=== PATIENT | female | born 1940 | race Hispanic/Latino ===

== ENCOUNTER 2020-07-12 13:43 | Outpatient (CLI) | payer OTHER | END 2020-07-12 13:44 | disposition home or self-care (01) | LOC: CSHULT 13:43 | PROVIDERS: ATTEND Internal Medicine | DX: N18.31 Chronic kidney disease, stage 3a (principal); N28.9 Disorder of kidney and ureter, unspecified | CPT/HCPCS: 76770 ==

== ENCOUNTER 2021-06-29 12:07 | Inpatient (IN) | payer OTHER ==
[2021-06-29 12:51] LABS: Hemoglobin 12.5 g/dL (12.0-15.5); MDiff Complete? YES; Mean Corpuscular HGB CONC 30.6 g/dL (32.0-36.0); Mean Corpuscular Hemoglobin 31.9 pg (27.0-33.0); Mean Corpuscular Volume 104.3 fl (81.6-98.3); Mean Platelet Volume 9.8 fl (7.4-10.4); Platelet Count 136 10x3/uL (150-450); RBC Distribution Width 13.8 % (11.5-14.5); Red Blood Cell (RBC) Count 3.92 10x6/uL (3.90-5.03); White Blood Cell (WBC) Count 15.6 10x3/uL (3.5-10.5)
[2021-06-29 12:55] LABS: Acetaminophen Less than 6.0 mcg/mL (10.0-30.0); Alcohol Less than 10 mg/dL (Less than 10); Salicylate Less than 8.0 mg/dL (15.0-30.0)
[2021-06-29 12:57] LABS: ALT (SGPT) 62 U/L (8-55); Albumin 2.6 g/dL (3.4-4.8); Alkaline Phosphatase 29 U/L (40-110); Anion Gap 20 mmol/L (10-20); BUN (Urea Nitrogen) 20 mg/dL (9.8-20.1); Bilirubin, Total 0.2 mg/dL (0.2-1.2); Calc. Creatinine Clearance 0 mL/min (70-130); Calcium 7.2 mg/dL (7.8-10.44); Carbon Dioxide 12 mmol/L (23-31); Chloride 114 mmol/L (98-107); Globulin 2.4 g/dL (2.4-3.5); Glucose 293 mg/dL (83-110); Lipase 40 U/L (8-78); Potassium 3.4 mmol/L (3.5-5.1); Sodium 143 mmol/L (136-145)
[2021-06-29 12:58] LABS: AST (SGOT) 172 U/L (5-34)
[2021-06-29 13:17] LABS: CKMB 2.1 ng/mL (0-6.6)
[2021-06-29 13:18] LABS: Band 1 % (5-11); Lymphocytes 59 % (21-51); Monocytes 9 % (0-10); Neutrophil 29 % (42-75); Reactive Lymphocytes 2 % (0-10)
[2021-06-29 13:19] LABS: Macrocytosis SLIGHT = 6-15 cells (100X) (0-5/hpf)
[2021-06-29 13:20] LABS: Platelet Morphology Comment Appears Decreased
[2021-06-29 13:31] LABS: Critical Notified By: FY
[2021-06-29 13:32] LABS: Actual Bicarbonate (HCO3a) 11.2 mEq/L (22-28); O2 Tension (PaO2), arterial 142.5 mmHg (> 60.0)
[2021-06-29 13:33] LABS: Base Excess (BEa) -21.8 mEq/L (-2.0 to +3.0); Hemoglobin (Hb) 12.8 g/dL (12.0-16.0)
[2021-06-29 13:34] LABS: Calcium, Ionized (arterial) 1.05 mmol/L (1.12-1.30); Potassium - ABG Lab 2.9 mmol/L (3.70-5.30)
[2021-06-29 13:37] LABS: RapidComm Collect By EA
[2021-06-29] MEDS ORDERED: Sodium Bicarb 5 MEQ/10 ML Abboject 4.2% SYRINGE ONE (13:37)
[2021-06-29 14:34] LABS: Bilirubin Neg (Negative); Blood, Urine 50 (Negative); Clarity Clear (Clear); Glucose, Urine (Dipstick) 250 mg/dL (Negative); Ketone, Urine Negative (Negative); Leukocyte Negative (Negative); Nitrite Negative (Negative); Protein, Urine (Dipstick) 100 mg/dl (Neg-Trace); Urobilinogen Normal mg/dL (Less than 2); pH, Urine 6.5 (5.0-9.0)
[2021-06-29] MEDS ORDERED: Fentanyl 100 MCG/2 ML VIAL ONE ×2 (14:39→16:05)
[2021-06-29] MEDS ORDERED: Enoxaparin Sodium 80 MG/0.8 ML SYRINGE ONE (14:40)
[2021-06-29 14:44] LABS: Amphetamine Not Detected (NotDetected); Barbiturates Screen Not Detected (NotDetected); Benzodiazepine Screen Not Detected (NotDetected); Cocaine Metabolite Screen Not Detected (NotDetected); Methadone Not Detected (NotDetected); Methamphetamine Not Detected (NotDetected); Opiate Screen Not Detected (NotDetected); Oxycodone Screen Not Detected (NotDetected); Phencyclidine (PCP) Not Detected (NotDetected); THC/Cannabinoid Screen Not Detected (NotDetected); Tricyclic Screen Not Detected (NotDetected)
[2021-06-29 15:08] LABS: Critical Notified By: FY
[2021-06-29 15:09] LABS: Actual Bicarbonate (HCO3a) 17.9 mEq/L (22-28); Base Excess (BEa) -10.4 mEq/L (-2.0 to +3.0); Carboxyhemoglobin (COHb) 0.3 gm% (0.0-3.0); Hemoglobin (Hb) 16.1 g/dL (12.0-16.0); O2 Tension (PaO2), arterial 122.7 mmHg (> 60.0); pH, Arterial 7.19 (7.35-7.45)
[2021-06-29 15:10] LABS: SARS-CoV-2 NAA Rapid Test Not Detected (NotDetected)
[2021-06-29 15:11] LABS: Calcium, Ionized (arterial) 1.01 mmol/L (1.12-1.30); Puncture Site RRA
[2021-06-29 15:13] LABS: RapidComm Collect By EA
[2021-06-29 15:27] LABS: Lactic Acid 4.6 mmol/L (0.5-2.2)
[2021-06-29] MEDS ORDERED: Electrolyte Replacement Protocol 1 EACH IVPB ONE (15:37)
[2021-06-29] MEDS ORDERED: Ondansetron PF 4 MG/2 ML Vial IVP PRN (15:37)
[2021-06-29] MEDS ORDERED: Sodium Chloride 0.9% 1,000 ML IV SCH (15:45)
[2021-06-29 15:58] LABS: Bacteria/HPF None Seen HPF (None Seen); RBC/HPF 0-3 HPF (0-3); Squamous Epithelial 0-3 HPF (0-3); WBC/HPF None Seen HPF (0-3)
[2021-06-29] MEDS ORDERED: Potassium Chloride 20 MEQ in Premix Bag 1 BAG IVPB SCH (16:00)
[2021-06-29] MEDS ORDERED: Fentanyl 100 MCG/2 ML VIAL SLOW IVP PRN (16:10)
[2021-06-29] MEDS ORDERED: Acetaminophen 650 MG/20.3 ML UDCUP PO PRN (16:52)
[2021-06-29] MEDS ORDERED: Heparin 10,000 UNITS/ 10 ML VIAL SLOW IVP SCH (17:00)
[2021-06-29] MEDS ORDERED: fentaNYL Citrate/PF 2,000 MCG in Sodium Chloride 0.9% 60 ML IV PRN (17:15)
[2021-06-29] MEDS ORDERED: Propofol 1,000 MG/100 ML VIAL IV PRN (17:15)
[2021-06-29] MEDS ORDERED: ADMIXTURE FEE IV SCH (17:30)
[2021-06-29] MEDS ORDERED: STERILE WATER IV SCH (17:30)
[2021-06-29] MEDS ORDERED: SODIUM BICARBONATE IV SCH (17:30)
[2021-06-29] MEDS ORDERED: Piperacillin/Tazobactam 4.5 GM in Sodium Chloride 0.9% 100 ML IVPB SCH (18:00)
[2021-06-29] MEDS: Heparin 25,000 units/D5W 500 ML IVPB SCH (18:00)
[2021-06-29] MEDS ORDERED: Morphine 2 MG/ML VIAL SLOW IVP PRN (19:00)
[2021-06-29] MEDS ORDERED: Fentanyl BOLUS 250 ML IVPB PRN (19:00)
[2021-06-29] MEDS ORDERED: Propofol BOLUS 1,000 MG/100 ML VIAL IV PRN (19:00)
[2021-06-29] MEDS ORDERED: DISCONTINUE PREVIOUS NARCOTIC PAIN MEDICATIONS AND BENZODIAZEPINES FS SCH (19:00)
[2021-06-29] MEDS: fentaNYL Citrate-0.9 % NaCl/PF 100 ML IVPB SCH (19:23)
[2021-06-29 19:26] LABS: Platelet Count 169 10x3/uL (150-450)
[2021-06-29] MEDS: Vecuronium 10 MG VIAL IV PRN (19:27)
[2021-06-29 19:37] LABS: Lactic Acid 6.6 mmol/L (0.5-2.2)
[2021-06-29] MEDS ORDERED: Enoxaparin Sodium 80 MG/0.8 ML SYRINGE SC SCH (21:00)
[2021-06-29] MEDS ORDERED: Vecuronium Bromide 50 MG in Sodium Chloride 0.9% 250 ML 250 ML IV SCH (23:00)
[2021-06-29 23:21] LABS: PTT 125.8 sec (22.0-33.0)
[2021-06-29] MEDS: HumaLOG 300 UNITS/3 ML VIAL SC PRN (23:30)
[2021-06-29 23:44] LABS: ALT (SGPT) 108 U/L (8-55); AST (SGOT) 327 U/L (5-34); Albumin 3.7 g/dL (3.4-4.8); Alkaline Phosphatase 41 U/L (40-110); Anion Gap 21 mmol/L (10-20); BUN (Urea Nitrogen) 16 mg/dL (9.8-20.1); Bilirubin, Total 0.5 mg/dL (0.2-1.2); Calc. Creatinine Clearance 36 mL/min (70-130); Calcium 7.3 mg/dL (7.8-10.44); Carbon Dioxide 18 mmol/L (23-31); Chloride 105 mmol/L (98-107); Glucose 194 mg/dL (83-110); Potassium 3.2 mmol/L (3.5-5.1); Protein, Total 6.7 g/dL (5.8-8.1); Sodium 141 mmol/L (136-145)
[2021-06-30 00:01] LABS: #Monocytes 0.4 10x3/uL (0.0-1.1); #Neutrophils 10.4 10x3/uL (1.5-8.4); %Basophils 0.2 % (0.0-2.0); %Eosinophils 0.1 % (0.0-6.0); %Lymphocytes 13.9 % (18.0-47.0); %Neutrophils 81.8 % (40.0-75.0); Hemoglobin 14.3 g/dL (12.0-15.5); Mean Corpuscular HGB CONC 32.1 g/dL (32.0-36.0); Mean Corpuscular Hemoglobin 31.3 pg (27.0-33.0); Mean Corpuscular Volume 97.6 fl (81.6-98.3); Mean Platelet Volume 9.8 fl (7.4-10.4); Platelet Count 117 10x3/uL (150-450); RBC Distribution Width 13.9 % (11.5-14.5); Red Blood Cell (RBC) Count 4.57 10x6/uL (3.90-5.03); White Blood Cell (WBC) Count 12.8 10x3/uL (3.5-10.5)
[2021-06-30 00:24] LABS: Platelet Morphology Comment Appears Decreased; RBC Morphology Normal
[2021-06-30] MEDS ORDERED: Electrolyte Replacement Protocol FS SCH (00:45)
[2021-06-30 01:08] LABS: Magnesium 1.8 mg/dL (1.6-2.6)
[2021-06-30 01:52] LABS: Phosphorus 2.5 mg/dL (2.3-4.7)
[2021-06-30] MEDS ORDERED: Magnesium 2 GM/50 ML 2 GM in Premix Bag 1 BAG IVPB SCH ×2 (02:00→19:00)
[2021-06-30] MEDS ORDERED: Potassium Chloride 20 MEQ in Premix Bag 1 BAG IVPB SCH ×3 (02:00→19:00)
[2021-06-30] MEDS: Vecuronium 10 MG VIAL IV PRN ×3 (02:22→14:45)
[2021-06-30] MEDS: Norepinephrine 8 MG/0.9% NS 250 ML IVPB PRN ×2 (02:25→18:04)
[2021-06-30] MEDS: Piperacillin/Tazobactam 3.375 GM in Sodium Chloride 0.9% 100 ML IVPB SCH ×3 (02:36→17:19)
[2021-06-30] MEDS: Propofol 1,000 MG/100 ML VIAL IV PRN ×2 (02:47→10:27)
[2021-06-30 03:31] LABS: pH, Arterial 7.22 (7.35-7.45)
[2021-06-30 03:32] LABS: Actual Bicarbonate (HCO3a) 15.4 mEq/L (22-28); Base Excess (BEa) -11.5 mEq/L (-2.0 to +3.0); CO2 Tension 38.4 mmHg (35.0-45.0); Carboxyhemoglobin (COHb) 0.1 gm% (0.0-3.0); O2 Tension (PaO2), arterial 215.4 mmHg (> 60.0); Potassium - ABG Lab 4.7 mmol/L (3.70-5.30)
[2021-06-30 03:33] LABS: Calcium, Ionized (arterial) 0.97 mmol/L (1.12-1.30); Puncture Site RRA
[2021-06-30 03:51] LABS: Actual Bicarbonate (HCO3a) 17.1 mEq/L (22-28); CO2 Tension 34.4 mmHg (35.0-45.0); Carboxyhemoglobin (COHb) 0.1 gm% (0.0-3.0); Hemoglobin (Hb) 15.9 g/dL (12.0-16.0); O2 Tension (PaO2), arterial 305.7 mmHg (> 60.0); pH, Arterial 7.31 (7.35-7.45)
[2021-06-30 03:52] LABS: Calcium, Ionized (arterial) 0.95 mmol/L (1.12-1.30); Puncture Site RRA
[2021-06-30] MEDS ORDERED: Electrolyte Replacement Protocol FS PRN (05:00)
[2021-06-30 05:44] LABS: Magnesium 1.6 mg/dL (1.6-2.6)
[2021-06-30 05:46] LABS: ALT (SGPT) 84 U/L (8-55); AST (SGOT) 226 U/L (5-34); Albumin 3.2 g/dL (3.4-4.8); Alkaline Phosphatase 34 U/L (40-110); Anion Gap 18 mmol/L (10-20); BUN (Urea Nitrogen) 16 mg/dL (9.8-20.1); Bilirubin, Total 0.5 mg/dL (0.2-1.2); Calc. Creatinine Clearance 44 mL/min (70-130); Calcium 6.7 mg/dL (7.8-10.44); Carbon Dioxide 22 mmol/L (23-31); Chloride 104 mmol/L (98-107); Globulin 2.6 g/dL (2.4-3.5); Glucose 111 mg/dL (83-110); Protein, Total 5.8 g/dL (5.8-8.1); Sodium 141 mmol/L (136-145)
[2021-06-30 05:48] LABS: Potassium 2.9 mmol/L (3.5-5.1)
[2021-06-30 05:50] LABS: Band 6 % (5-11); Lymphocytes 26 % (21-51); MDiff Complete? YES; Mean Corpuscular HGB CONC 34.8 g/dL (32.0-36.0); Mean Corpuscular Hemoglobin 32.5 pg (27.0-33.0); Mean Corpuscular Volume 93.3 fl (81.6-98.3); Mean Platelet Volume 9.6 fl (7.4-10.4); Monocytes 2 % (0-10); Neutrophil 63 % (42-75); Platelet Count 161 10x3/uL (150-450); Platelet Morphology Comment Appears Adequate; RBC Distribution Width 13.7 % (11.5-14.5); RBC Morphology Normal; Reactive Lymphocytes 3 % (0-10); Red Blood Cell (RBC) Count 4.31 10x6/uL (3.90-5.03); White Blood Cell (WBC) Count 16.3 10x3/uL (3.5-10.5)
[2021-06-30] MEDS ORDERED: SODIUM BICARBONATE IV SCH ×2 (06:00→06:15)
[2021-06-30] MEDS ORDERED: ADMIXTURE FEE IV SCH (06:00)
[2021-06-30] MEDS ORDERED: STERILE WATER IV SCH ×2 (06:00→06:15)
[2021-06-30 06:07] LABS: PTT 96.4 sec (22.0-33.0)
[2021-06-30 06:32] LABS: Puncture Site RRA
[2021-06-30 06:32] LABS: Temperature 34.7 C
[2021-06-30 06:32] LABS: ALV-art Gradient 214.325 mmHg (0-20); Actual Bicarbonate (HCO3a) 24.1 mEq/L (22-28); Base Excess (BEa) 0.7 mEq/L (-2.0 to +3.0); CO2 Tension 35.1 mmHg (35.0-45.0); Calcium, Ionized (arterial) 0.88 mmol/L (1.12-1.30); Carboxyhemoglobin (COHb) 0.5 gm% (0.0-3.0); Hemoglobin (Hb) 14.1 g/dL (12.0-16.0); O2 Tension (PaO2), arterial 98.3 mmHg (> 60.0); Potassium - ABG Lab 2.8 mmol/L (3.70-5.30); Puncture Site Arterial Line; Temperature 34.6 C; pH, Arterial 7.46 (7.35-7.45)
[2021-06-30] MEDS ORDERED: Electrolyte Replacement Protocol 1 EACH IVPB SCH (09:00)
[2021-06-30 11:25] LABS: #Monocytes 0.8 10x3/uL (0.0-1.1); #Neutrophils 10.6 10x3/uL (1.5-8.4); %Basophils 0.1 % (0.0-2.0); %Eosinophils 0.1 % (0.0-6.0); %Lymphocytes 28.2 % (18.0-47.0); %Monocytes 5.1 % (0.0-10.0); %Neutrophils 66.1 % (40.0-75.0); Hemoglobin 13.1 g/dL (12.0-15.5); Mean Corpuscular HGB CONC 34.3 g/dL (32.0-36.0); Mean Corpuscular Hemoglobin 32.1 pg (27.0-33.0); Mean Corpuscular Volume 93.6 fl (81.6-98.3); Platelet Count 151 10x3/uL (150-450); RBC Distribution Width 13.8 % (11.5-14.5); Red Blood Cell (RBC) Count 4.08 10x6/uL (3.90-5.03)
[2021-06-30 12:31] LABS: PTT Greater than 139.0 sec (22.0-33.0)
[2021-06-30 13:08] LABS: Phosphorus 2.6 mg/dL (2.3-4.7)
[2021-06-30 13:14] LABS: ALT (SGPT) 73 U/L (8-55); AST (SGOT) 160 U/L (5-34); Albumin 3.1 g/dL (3.4-4.8); Alkaline Phosphatase 32 U/L (40-110); Anion Gap 20 mmol/L (10-20); BUN (Urea Nitrogen) 17 mg/dL (9.8-20.1); Bilirubin, Total 0.5 mg/dL (0.2-1.2); Calc. Creatinine Clearance 37 mL/min (70-130); Calcium 6.8 mg/dL (7.8-10.44); Carbon Dioxide 23 mmol/L (23-31); Chloride 104 mmol/L (98-107); Globulin 2.4 g/dL (2.4-3.5); Glucose 139 mg/dL (83-110); Magnesium 1.7 mg/dL (1.6-2.6); Potassium 3.3 mmol/L (3.5-5.1); Protein, Total 5.5 g/dL (5.8-8.1); Sodium 144 mmol/L (136-145)
[2021-06-30 14:17] LABS: CKMB 25.4 ng/mL (0-6.6)
[2021-06-30 15:03] LABS: PTT 100.5 sec (22.0-33.0)
[2021-06-30 15:33] LABS: Actual Bicarbonate (HCO3a) 23.1 mEq/L (22-28); Base Excess (BEa) -1.1 mEq/L (-2.0 to +3.0); CO2 Tension 36.8 mmHg (35.0-45.0); Calcium, Ionized (arterial) 0.89 mmol/L (1.12-1.30); Carboxyhemoglobin (COHb) 0.2 gm% (0.0-3.0); Hemoglobin (Hb) 13.4 g/dL (12.0-16.0); O2 Tension (PaO2), arterial 128.5 mmHg (> 60.0); Potassium - ABG Lab 2.9 mmol/L (3.70-5.30); Puncture Site Arterial Line; pH, Arterial 7.42 (7.35-7.45)
[2021-06-30 17:25] LABS: #Monocytes 0.7 10x3/uL (0.0-1.1); #Neutrophils 10.6 10x3/uL (1.5-8.4); %Basophils 0.2 % (0.0-2.0); %Eosinophils 0.1 % (0.0-6.0); %Lymphocytes 33.2 % (18.0-47.0); %Monocytes 4.2 % (0.0-10.0); %Neutrophils 61.9 % (40.0-75.0); Hemoglobin 12.8 g/dL (12.0-15.5); Mean Corpuscular HGB CONC 34.5 g/dL (32.0-36.0); Mean Corpuscular Hemoglobin 32.2 pg (27.0-33.0); Mean Corpuscular Volume 93.2 fl (81.6-98.3); Mean Platelet Volume 10.3 fl (7.4-10.4); Platelet Count 143 10x3/uL (150-450); RBC Distribution Width 13.9 % (11.5-14.5); Red Blood Cell (RBC) Count 3.98 10x6/uL (3.90-5.03); White Blood Cell (WBC) Count 17.2 10x3/uL (3.5-10.5)
[2021-06-30 17:41] LABS: Phosphorus 2.2 mg/dL (2.3-4.7)
[2021-06-30 17:43] LABS: ALT (SGPT) 64 U/L (8-55); AST (SGOT) 118 U/L (5-34); Albumin 2.9 g/dL (3.4-4.8); Alkaline Phosphatase 32 U/L (40-110); Anion Gap 19 mmol/L (10-20); BUN (Urea Nitrogen) 18 mg/dL (9.8-20.1); Bilirubin, Total 0.5 mg/dL (0.2-1.2); Calc. Creatinine Clearance 35 mL/min (70-130); Calcium 6.7 mg/dL (7.8-10.44); Carbon Dioxide 24 mmol/L (23-31); Chloride 104 mmol/L (98-107); Globulin 3.1 g/dL (2.4-3.5); Glucose 127 mg/dL (83-110); Magnesium 1.6 mg/dL (1.6-2.6); Sodium 144 mmol/L (136-145)
[2021-06-30 18:07] LABS: CKMB 25.2 ng/mL (0-6.6)
[2021-06-30] MEDS: fentaNYL Citrate-0.9 % NaCl/PF 100 ML IVPB SCH (18:10)
[2021-06-30] MEDS ORDERED: Famotidine/PF 20 mg/2ml Vial SLOW IVP SCH (21:00)
[2021-06-30 21:52] LABS: PTT Greater than 139.0 sec (22.0-33.0)
[2021-06-30 22:08] LABS: Anion Gap 21 mmol/L (10-20); BUN (Urea Nitrogen) 20 mg/dL (9.8-20.1); Calc. Creatinine Clearance 34 mL/min (70-130); Calcium 6.6 mg/dL (7.8-10.44); Carbon Dioxide 20 mmol/L (23-31); Chloride 105 mmol/L (98-107); Glucose 159 mg/dL (83-110); Potassium 3.1 mmol/L (3.5-5.1); Sodium 143 mmol/L (136-145)
[2021-06-30] MEDS ORDERED: Sodium Chloride 0.9% 1,000 ML IV SCH (22:15)
[2021-06-30] MEDS ORDERED: Hydrocortisone Sod Succ/PF 100 mg/2 ml Vial IVP SCH (22:15)
[2021-07-01] MEDS ORDERED: Potassium Chloride 20 MEQ in Premix Bag 1 BAG IVPB SCH
[2021-07-01 00:45] LABS: Anion Gap 17 mmol/L (10-20); BUN (Urea Nitrogen) 18 mg/dL (9.8-20.1); Calc. Creatinine Clearance 42 mL/min (70-130); Carbon Dioxide 20 mmol/L (23-31); Chloride 109 mmol/L (98-107); Glucose 132 mg/dL (83-110); Potassium 3.3 mmol/L (3.5-5.1); Sodium 143 mmol/L (136-145)
[2021-07-01] MEDS: Sodium Chloride 0.9% 1,000 ML IV SCH ×2 (01:14→14:48)
[2021-07-01] MEDS: Piperacillin/Tazobactam 3.375 GM in Sodium Chloride 0.9% 100 ML IVPB SCH ×3 (01:14→16:48)
[2021-07-01] MEDS: Propofol 1,000 MG/100 ML VIAL IV PRN ×4 (01:14→18:06)
[2021-07-01] MEDS: Hydrocortisone Sod Succ/PF 100 mg/2 ml Vial IVP SCH ×4 (04:11→21:00)
[2021-07-01 04:33] LABS: Actual Bicarbonate (HCO3a) 17.1 mEq/L (22-28); Base Excess (BEa) -8.4 mEq/L (-2.0 to +3.0); CO2 Tension 34.9 mmHg (35.0-45.0); Calcium, Ionized (arterial) 0.92 mmol/L (1.12-1.30); Carboxyhemoglobin (COHb) 0.3 gm% (0.0-3.0); Hemoglobin (Hb) 10.6 g/dL (12.0-16.0); O2 Tension (PaO2), arterial 92.9 mmHg (> 60.0); Potassium - ABG Lab 3.5 mmol/L (3.70-5.30); Puncture Site Arterial Line; Temperature 35.3 C; pH, Arterial 7.31 (7.35-7.45)
[2021-07-01 04:35] LABS: ALV-art Gradient 219.975 mmHg (0-20)
[2021-07-01 04:49] LABS: Band 9 % (5-11); Hemoglobin 10.4 g/dL (12.0-15.5); Lymphocytes 12 % (21-51); MDiff Complete? YES; Mean Corpuscular HGB CONC 34.3 g/dL (32.0-36.0); Mean Corpuscular Hemoglobin 32.5 pg (27.0-33.0); Mean Corpuscular Volume 94.7 fl (81.6-98.3); Mean Platelet Volume 10.6 fl (7.4-10.4); Monocytes 1 % (0-10); Myelocyte 1 % (0-0); Neutrophil 77 % (42-75); Platelet Count 143 10x3/uL (150-450); Platelet Morphology Comment Appears Adequate; RBC Distribution Width 14.5 % (11.5-14.5); RBC Morphology Normal; White Blood Cell (WBC) Count 16.7 10x3/uL (3.5-10.5)
[2021-07-01 04:56] LABS: ALT (SGPT) 49 U/L (8-55); AST (SGOT) 73 U/L (5-34); Albumin 2.5 g/dL (3.4-4.8); Alkaline Phosphatase 29 U/L (40-110); Anion Gap 17 mmol/L (10-20); BUN (Urea Nitrogen) 20 mg/dL (9.8-20.1); Bilirubin, Total 0.4 mg/dL (0.2-1.2); Calc. Creatinine Clearance 45 mL/min (70-130); Carbon Dioxide 19 mmol/L (23-31); Chloride 110 mmol/L (98-107); Globulin 2.2 g/dL (2.4-3.5); Glucose 161 mg/dL (83-110); Magnesium 2.2 mg/dL (1.6-2.6); Potassium 3.6 mmol/L (3.5-5.1); Protein, Total 4.7 g/dL (5.8-8.1); Sodium 142 mmol/L (136-145)
[2021-07-01 05:24] LABS: PTT 98.5 sec (22.0-33.0)
[2021-07-01] MEDS ORDERED: Calcium Gluconate 4.6 MEQ in Sodium Chloride 0.9% 100 ML IVPB SCH (07:30)
[2021-07-01] MEDS ORDERED: Calcium Gluconate 100 MG/ML 10 ML IVPB SCH (07:30)
[2021-07-01] MEDS: Heparin 25,000 units/D5W 500 ML IVPB SCH (08:40)
[2021-07-01] MEDS: Norepinephrine 8 MG/0.9% NS 250 ML IVPB PRN (08:40)
[2021-07-01 14:45] LABS: PTT Greater than 250.0 sec (22.9-36.1)
[2021-07-01 15:02] LABS: Lactic Acid 1.5 mmol/L (0.5-2.2)
[2021-07-01 15:37] LABS: PTT Greater than 139.0 sec (22.0-33.0)
[2021-07-01] MEDS: HumaLOG 300 UNITS/3 ML VIAL SC PRN (15:53)
[2021-07-01] MEDS: Dexmedetomidine In 0.9 % NaCl 100 ML IVPB SCH (16:30)
[2021-07-01 16:37] LABS: Hemoglobin 7.6 g/dL (12.0-15.5); Platelet Count 128 10x3/uL (150-450)
[2021-07-01 16:51] LABS: ALT (SGPT) 40 U/L (8-55); AST (SGOT) 56 U/L (5-34); Albumin 2.4 g/dL (3.4-4.8); Alkaline Phosphatase 30 U/L (40-110); Anion Gap 16 mmol/L (10-20); Bilirubin, Total 0.3 mg/dL (0.2-1.2); Calc. Creatinine Clearance 38 mL/min (70-130); Calcium 6.3 mg/dL (7.8-10.44); Carbon Dioxide 20 mmol/L (23-31); Chloride 111 mmol/L (98-107); Globulin 2.2 g/dL (2.4-3.5); Glucose 151 mg/dL (83-110); Protein, Total 4.6 g/dL (5.8-8.1); Sodium 143 mmol/L (136-145)
[2021-07-01 17:01] LABS: BUN (Urea Nitrogen) 20 mg/dL (9.8-20.1)
[2021-07-01] MEDS: Enoxaparin Sodium 60 MG/0.6 ML SYRINGE SC SCH (21:00)
[2021-07-01] MEDS: Famotidine/PF 20 mg/2ml Vial SLOW IVP SCH (21:00)
[2021-07-01] MEDS: fentaNYL Citrate-0.9 % NaCl/PF 100 ML IVPB SCH (22:51)
[2021-07-02] MEDS: Dexmedetomidine In 0.9 % NaCl 100 ML IVPB SCH ×3 (01:36→21:52)
[2021-07-02] MEDS: Piperacillin/Tazobactam 3.375 GM in Sodium Chloride 0.9% 100 ML IVPB SCH ×3 (01:46→18:22)
[2021-07-02] MEDS: Sodium Chloride 0.9% 1,000 ML IV SCH ×2 (02:58→05:34)
[2021-07-02] MEDS: Hydrocortisone Sod Succ/PF 100 mg/2 ml Vial IVP SCH ×3 (03:43→18:22)
[2021-07-02 04:29] LABS: ALT (SGPT) 30 U/L (8-55); AST (SGOT) 40 U/L (5-34); Albumin 2.3 g/dL (3.4-4.8); Alkaline Phosphatase 30 U/L (40-110); Anion Gap 15 mmol/L (10-20); BUN (Urea Nitrogen) 21 mg/dL (9.8-20.1); Bilirubin, Total 0.2 mg/dL (0.2-1.2); Calc. Creatinine Clearance 42 mL/min (70-130); Carbon Dioxide 19 mmol/L (23-31); Chloride 113 mmol/L (98-107); Globulin 1.9 g/dL (2.4-3.5); Glucose 137 mg/dL (83-110); Magnesium 2.2 mg/dL (1.6-2.6); Potassium 3.6 mmol/L (3.5-5.1); Protein, Total 4.2 g/dL (5.8-8.1); Sodium 143 mmol/L (136-145)
[2021-07-02 04:34] LABS: Phosphorus 2.4 mg/dL (2.3-4.7)
[2021-07-02 04:42] LABS: Band 1 % (5-11); Hemoglobin 7.2 g/dL (12.0-15.5); Lymphocytes 11 % (21-51); MDiff Complete? YES; Mean Corpuscular HGB CONC 33.2 g/dL (32.0-36.0); Mean Corpuscular Hemoglobin 32.1 pg (27.0-33.0); Mean Corpuscular Volume 96.9 fl (81.6-98.3); Mean Platelet Volume 10.5 fl (7.4-10.4); Monocytes 5 % (0-10); Neutrophil 83 % (42-75); Platelet Count 125 10x3/uL (150-450); Platelet Morphology Comment Appears Adequate; RBC Distribution Width 14.8 % (11.5-14.5); RBC Morphology Normal; Red Blood Cell (RBC) Count 2.24 10x6/uL (3.90-5.03); White Blood Cell (WBC) Count 14.1 10x3/uL (3.5-10.5)
[2021-07-02] MEDS ORDERED: Sodium Bicarbonate 2.5 MEQ/5 ML VIAL ONE (08:25)
[2021-07-02] MEDS: Lorazepam 2 MG/ML VIAL SLOW IVP PRN ×4 (09:54→23:29)
[2021-07-02] MEDS: Enoxaparin Sodium 60 MG/0.6 ML SYRINGE SC SCH (10:23)
[2021-07-02] MEDS: Norepinephrine 8 MG/0.9% NS 250 ML IVPB PRN (10:26)
[2021-07-02 14:32] LABS: Hemoglobin 6.9 g/dL (12.0-15.5)
[2021-07-02] MEDS: Famotidine/PF 20 mg/2ml Vial SLOW IVP SCH (21:52)
[2021-07-03] MEDS: Lorazepam 2 MG/ML VIAL SLOW IVP PRN ×2 (01:49→06:06)
[2021-07-03 03:59] LABS: Actual Bicarbonate (HCO3a) 18.6 mEq/L (22-28); Base Excess (BEa) -3.9 mEq/L (-2.0 to +3.0); CO2 Tension 24.2 mmHg (35.0-45.0); Calcium, Ionized (arterial) 0.89 mmol/L (1.12-1.30); Carboxyhemoglobin (COHb) 0.7 gm% (0.0-3.0); Hemoglobin (Hb) 7.6 g/dL (12.0-16.0); O2 Tension (PaO2), arterial 79.1 mmHg (> 60.0); Potassium - ABG Lab 3.3 mmol/L (3.70-5.30); Puncture Site Arterial Line
[2021-07-03] MEDS: Piperacillin/Tazobactam 3.375 GM in Sodium Chloride 0.9% 100 ML IVPB SCH ×3 (04:24→18:12)
[2021-07-03] MEDS: Hydrocortisone Sod Succ/PF 100 mg/2 ml Vial IVP SCH ×3 (04:24→18:13)
[2021-07-03 05:17] LABS: ALT (SGPT) 22 U/L (8-55); AST (SGOT) 34 U/L (5-34); Albumin 2.2 g/dL (3.4-4.8); Alkaline Phosphatase 33 U/L (40-110); Anion Gap 10 mmol/L (10-20); BUN (Urea Nitrogen) 22 mg/dL (9.8-20.1); Bilirubin, Total 0.6 mg/dL (0.2-1.2); Calc. Creatinine Clearance 53 mL/min (70-130); Calcium 6.1 mg/dL (7.8-10.44); Carbon Dioxide 20 mmol/L (23-31); Chloride 118 mmol/L (98-107); Globulin 1.9 g/dL (2.4-3.5); Glucose 124 mg/dL (83-110); Potassium 3.4 mmol/L (3.5-5.1); Protein, Total 4.1 g/dL (5.8-8.1); Sodium 145 mmol/L (136-145)
[2021-07-03 05:20] LABS: Hemoglobin 7.7 g/dL (12.0-15.5); Mean Corpuscular HGB CONC 34.4 g/dL (32.0-36.0); Mean Corpuscular Volume 92.9 fl (81.6-98.3); Mean Platelet Volume 10.2 fl (7.4-10.4); Platelet Count 102 10x3/uL (150-450); RBC Distribution Width 16.7 % (11.5-14.5); Red Blood Cell (RBC) Count 2.41 10x6/uL (3.90-5.03); White Blood Cell (WBC) Count 10.7 10x3/uL (3.5-10.5)
[2021-07-03] MEDS: Dexmedetomidine In 0.9 % NaCl 100 ML IVPB SCH ×3 (05:50→21:29)
[2021-07-03 06:03] LABS: MDiff Complete? YES
[2021-07-03 06:07] LABS: Lymphocytes 25 % (21-51); Monocytes 2 % (0-10); Neutrophil 73 % (42-75)
[2021-07-03 06:08] LABS: Hypochromia SLIGHT = 6-15 cells (100X) (0-5/hpf)
[2021-07-03] MEDS: Potassium Chloride 20 MEQ in Premix Bag 1 BAG IVPB SCH ×2 (06:08→08:32)
[2021-07-03 06:09] LABS: Polychromasia SLIGHT = 2-3 cells (100X) (0-2/hpf)
[2021-07-03 06:10] LABS: Platelet Morphology Comment Appears Decreased
[2021-07-03] MEDS: Sodium Chloride 0.9% 1,000 ML IV SCH ×2 (06:24→21:29)
[2021-07-03 07:22] LABS: ALV-art Gradient 132.425 mmHg (0-20); Actual Bicarbonate (HCO3a) 24.2 mEq/L (22-28); CO2 Tension 37.3 mmHg (35.0-45.0); Calcium, Ionized (arterial) 0.88 mmol/L (1.12-1.30); Carboxyhemoglobin (COHb) 0.2 gm% (0.0-3.0); Hemoglobin (Hb) 7.7 g/dL (12.0-16.0); O2 Tension (PaO2), arterial 70.5 mmHg (> 60.0); Potassium - ABG Lab 3.4 mmol/L (3.70-5.30); Puncture Site Arterial Line; pH, Arterial 7.43 (7.35-7.45)
[2021-07-03] MEDS ORDERED: Sodium Chloride 0.45% 1,000 ML IV SCH (09:30)
[2021-07-03] MEDS ORDERED: Albumin 25% 25 GM/100 ML BOT IVPB SCH (09:30)
[2021-07-03 13:28] LABS: Hemoglobin 7.3 g/dL (12.0-15.5)
[2021-07-03 13:48] LABS: Potassium 3.6 mmol/L (3.5-5.1)
[2021-07-03] MEDS: Midazolam HCl 2 mg/2 ml Vial SLOW IVP PRN (16:04)
[2021-07-03 17:22] LABS: Hemoglobin 7.1 g/dL (12.0-15.5); Platelet Count 100 10x3/uL (150-450)
[2021-07-03] MEDS: Morphine 4 MG/ML VIAL SLOW IVP PRN (21:03)
[2021-07-03] MEDS: Famotidine/PF 20 mg/2ml Vial SLOW IVP SCH (21:29)
[2021-07-03] MEDS: Enoxaparin Sodium 40 MG/0.4 ML SYRINGE SC SCH (21:29)
[2021-07-04] MEDS: Morphine 4 MG/ML VIAL SLOW IVP PRN ×5 (00:21→17:15)
[2021-07-04] MEDS: Midazolam HCl 2 mg/2 ml Vial SLOW IVP PRN ×4 (01:20→16:34)
[2021-07-04] MEDS: Piperacillin/Tazobactam 3.375 GM in Sodium Chloride 0.9% 100 ML IVPB SCH ×3 (02:23→17:04)
[2021-07-04 03:15] LABS: Hemoglobin 7.9 g/dL (12.0-15.5); Mean Corpuscular HGB CONC 34.5 g/dL (32.0-36.0); Mean Corpuscular Hemoglobin 32.1 pg (27.0-33.0); Mean Corpuscular Volume 93.1 fl (81.6-98.3); Mean Platelet Volume 10.3 fl (7.4-10.4); Platelet Count 87 10x3/uL (150-450); RBC Distribution Width 15.9 % (11.5-14.5); Red Blood Cell (RBC) Count 2.46 10x6/uL (3.90-5.03)
[2021-07-04 03:23] LABS: ALT (SGPT) 18 U/L (8-55); AST (SGOT) 26 U/L (5-34); Albumin 2.7 g/dL (3.4-4.8); Alkaline Phosphatase 36 U/L (40-110); Anion Gap 12 mmol/L (10-20); BUN (Urea Nitrogen) 16 mg/dL (9.8-20.1); Bilirubin, Total 0.9 mg/dL (0.2-1.2); Calc. Creatinine Clearance 68 mL/min (70-130); Calcium 6.6 mg/dL (7.8-10.44); Carbon Dioxide 18 mmol/L (23-31); Chloride 117 mmol/L (98-107); Glucose 138 mg/dL (83-110); Protein, Total 4.7 g/dL (5.8-8.1); Sodium 144 mmol/L (136-145)
[2021-07-04 03:37] LABS: MDiff Complete? YES
[2021-07-04 03:41] LABS: Band 4 % (5-11); Lymphocytes 14 % (21-51); Monocytes 4 % (0-10); Neutrophil 78 % (42-75); Nucleated RBC 1 % (0)
[2021-07-04 03:43] LABS: Hypochromia MODERATE=16-30 cells (100X) (0-5/hpf)
[2021-07-04 03:44] LABS: Platelet Morphology Comment Appears Decreased; Polychromasia SLIGHT = 2-3 cells (100X) (0-2/hpf)
[2021-07-04 04:40] LABS: Actual Bicarbonate (HCO3a) 16.6 mEq/L (22-28); Base Excess (BEa) -7.6 mEq/L (-2.0 to +3.0); Calcium, Ionized (arterial) 0.98 mmol/L (1.12-1.30); Carboxyhemoglobin (COHb) 0.1 gm% (0.0-3.0); Hemoglobin (Hb) 9.2 g/dL (12.0-16.0); O2 Tension (PaO2), arterial 85.9 mmHg (> 60.0); Potassium - ABG Lab 2.9 mmol/L (3.70-5.30); Puncture Site Arterial Line; pH, Arterial 7.38 (7.35-7.45)
[2021-07-04] MEDS: Dexmedetomidine In 0.9 % NaCl 100 ML IVPB SCH ×3 (05:42→17:05)
[2021-07-04] MEDS: Hydrocortisone Sod Succ/PF 100 mg/2 ml Vial IVP SCH ×2 (05:42→16:33)
[2021-07-04] MEDS ORDERED: Potassium Chloride 20 MEQ in Premix Bag 1 BAG IVPB SCH (06:00)
[2021-07-04] MEDS ORDERED: Potassium Bicarbonate/Cit Ac 20 MEQ TAB PER TUBE SCH (06:30)
[2021-07-04] MEDS: Enoxaparin Sodium 40 MG/0.4 ML SYRINGE SC SCH ×2 (09:08→23:25)
[2021-07-04] MEDS: Famotidine/PF 20 mg/2ml Vial SLOW IVP SCH ×2 (09:08→20:51)
[2021-07-04] MEDS: Sodium Chloride 0.9% 1,000 ML IV SCH (09:13)
[2021-07-04] MEDS: hydrALAZINE 20 MG/ML VIAL SLOW IVP PRN (10:41)
[2021-07-04 15:24] LABS: Potassium 3.2 mmol/L (3.5-5.1)
[2021-07-04 15:29] LABS: PTT 23.1 sec (22.0-33.0); Prothrombin Time 11.1 sec (9.5-12.1)
[2021-07-04] MEDS ORDERED: Potassium Bicarbonate/Cit Ac 20 MEQ TAB PO SCH (16:00)
[2021-07-04] MEDS ORDERED: Potassium Chloride 20 MEQ TAB PO SCH (16:00)
[2021-07-04 16:01] LABS: D-Dimer Test 10.56 mg/L FEU (0.19-0.50)
[2021-07-04] MEDS: levETIRAcetam in NS 1,000 MG in Premix Bag 1 BAG IVPB SCH (20:50)
[2021-07-04 23:43] LABS: Potassium 3.8 mmol/L (3.5-5.1)
[2021-07-05] MEDS: Morphine 4 MG/ML VIAL SLOW IVP PRN (01:43)
[2021-07-05] MEDS: Piperacillin/Tazobactam 3.375 GM in Sodium Chloride 0.9% 100 ML IVPB SCH ×3 (02:47→17:41)
[2021-07-05 03:28] LABS: Hemoglobin 7.2 g/dL (12.0-15.5); Mean Corpuscular HGB CONC 33.6 g/dL (32.0-36.0); Mean Corpuscular Volume 95.1 fl (81.6-98.3); Mean Platelet Volume 10.8 fl (7.4-10.4); Platelet Count 103 10x3/uL (150-450); RBC Distribution Width 15.8 % (11.5-14.5); Red Blood Cell (RBC) Count 2.25 10x6/uL (3.90-5.03); White Blood Cell (WBC) Count 5.3 10x3/uL (3.5-10.5)
[2021-07-05 03:37] LABS: ALT (SGPT) 14 U/L (8-55); AST (SGOT) 24 U/L (5-34); Albumin 2.4 g/dL (3.4-4.8); Alkaline Phosphatase 32 U/L (40-110); Anion Gap 13 mmol/L (10-20); BUN (Urea Nitrogen) 23 mg/dL (9.8-20.1); Bilirubin, Total 0.5 mg/dL (0.2-1.2); Calc. Creatinine Clearance 54 mL/min (70-130); Calcium 7.2 mg/dL (7.8-10.44); Carbon Dioxide 19 mmol/L (23-31); Chloride 116 mmol/L (98-107); Globulin 1.8 g/dL (2.4-3.5); Glucose 128 mg/dL (83-110); Potassium 3.4 mmol/L (3.5-5.1); Protein, Total 4.2 g/dL (5.8-8.1); Sodium 145 mmol/L (136-145)
[2021-07-05] MEDS ORDERED: Potassium Bicarbonate/Cit Ac 20 MEQ TAB PER TUBE SCH ×2 (04:00→14:00)
[2021-07-05 04:13] LABS: MDiff Complete? YES
[2021-07-05 04:17] LABS: Band 6 % (5-11); Lymphocytes 32 % (21-51); Monocytes 10 % (0-10); Neutrophil 52 % (42-75); Nucleated RBC 6 % (0)
[2021-07-05 04:20] LABS: Hypochromia MODERATE=16-30 cells (100X) (0-5/hpf)
[2021-07-05 04:21] LABS: Platelet Morphology Comment Appears Decreased; Polychromasia SLIGHT = 2-3 cells (100X) (0-2/hpf)
[2021-07-05 07:23] LABS: Actual Bicarbonate (HCO3a) 20.7 mEq/L (22-28); Base Excess (BEa) -2.5 mEq/L (-2.0 to +3.0); CO2 Tension 29.2 mmHg (35.0-45.0); Calcium, Ionized (arterial) 1.03 mmol/L (1.12-1.30); Carboxyhemoglobin (COHb) 0.4 gm% (0.0-3.0); Hemoglobin (Hb) 8.4 g/dL (12.0-16.0); O2 Tension (PaO2), arterial 80.7 mmHg (> 60.0); Potassium - ABG Lab 3.6 mmol/L (3.70-5.30); Puncture Site RRA; pH, Arterial 7.47 (7.35-7.45)
[2021-07-05] MEDS: Propofol 1,000 MG/100 ML VIAL IV PRN (07:30)
[2021-07-05] MEDS: Dexmedetomidine In 0.9 % NaCl 100 ML IVPB SCH ×2 (07:30→23:51)
[2021-07-05] MEDS: levETIRAcetam in NS 1,000 MG in Premix Bag 1 BAG IVPB SCH ×2 (08:34→20:15)
[2021-07-05] MEDS: Hydrocortisone Sod Succ/PF 100 mg/2 ml Vial IVP SCH (08:35)
[2021-07-05] MEDS: Famotidine/PF 20 mg/2ml Vial SLOW IVP SCH ×2 (08:35→20:16)
[2021-07-05 12:46] LABS: Potassium 3.5 mmol/L (3.5-5.1)
[2021-07-05] MEDS: Enoxaparin Sodium 40 MG/0.4 ML SYRINGE SC SCH ×2 (13:14→21:11)
[2021-07-05 19:14] LABS: Platelet Count 99 10x3/uL (150-450)
[2021-07-05 19:15] LABS: Hemoglobin 6.5 g/dL (12.0-15.5)
[2021-07-06] MEDS: Piperacillin/Tazobactam 3.375 GM in Sodium Chloride 0.9% 100 ML IVPB SCH ×3 (01:35→17:17)
[2021-07-06 04:20] LABS: Actual Bicarbonate (HCO3a) 23.3 mEq/L (22-28); Base Excess (BEa) 0.3 mEq/L (-2.0 to +3.0); CO2 Tension 31.7 mmHg (35.0-45.0); Carboxyhemoglobin (COHb) 0.3 gm% (0.0-3.0); Hemoglobin (Hb) 9.5 g/dL (12.0-16.0); O2 Tension (PaO2), arterial 99.7 mmHg (> 60.0); Potassium - ABG Lab 3.4 mmol/L (3.70-5.30); Puncture Site RRA; pH, Arterial 7.49 (7.35-7.45)
[2021-07-06 04:24] LABS: ALV-art Gradient 145.875 mmHg (0-20)
[2021-07-06 06:07] LABS: ALT (SGPT) 11 U/L (8-55); AST (SGOT) 22 U/L (5-34); Albumin 2.3 g/dL (3.4-4.8); Alkaline Phosphatase 33 U/L (40-110); Anion Gap 14 mmol/L (10-20); BUN (Urea Nitrogen) 19 mg/dL (9.8-20.1); Bilirubin, Total 0.6 mg/dL (0.2-1.2); Calc. Creatinine Clearance 62 mL/min (70-130); Calcium 7.5 mg/dL (7.8-10.44); Carbon Dioxide 19 mmol/L (23-31); Chloride 115 mmol/L (98-107); Glucose 135 mg/dL (83-110); Potassium 3.6 mmol/L (3.5-5.1); Protein, Total 4.3 g/dL (5.8-8.1); Sodium 144 mmol/L (136-145)
[2021-07-06 06:10] LABS: Hemoglobin 8.2 g/dL (12.0-15.5); Mean Corpuscular HGB CONC 33.3 g/dL (32.0-36.0); Mean Corpuscular Hemoglobin 31.7 pg (27.0-33.0); Mean Platelet Volume 10.8 fl (7.4-10.4); Platelet Count 88 10x3/uL (150-450); RBC Distribution Width 16.2 % (11.5-14.5); Red Blood Cell (RBC) Count 2.59 10x6/uL (3.90-5.03); White Blood Cell (WBC) Count 5.5 10x3/uL (3.5-10.5)
[2021-07-06 07:11] LABS: MDiff Complete? YES
[2021-07-06 07:14] LABS: Anisocytosis MODERATE=16-30 cells (100X) (0-5/hpf); Hypochromia SLIGHT = 6-15 cells (100X) (0-5/hpf); Macrocytosis SLIGHT = 6-15 cells (100X) (0-5/hpf); Polychromasia SLIGHT = 2-3 cells (100X) (0-2/hpf)
[2021-07-06 07:15] LABS: Platelet Morphology Comment Appears Decreased
[2021-07-06 07:20] LABS: Band 9 % (5-11); Eosinophils 4 % (0-10); Lymphocytes 24 % (21-51); Monocytes 5 % (0-10); Neutrophil 58 % (42-75); Nucleated RBC 3 % (0)
[2021-07-06] MEDS: Famotidine/PF 20 mg/2ml Vial SLOW IVP SCH ×2 (08:11→21:41)
[2021-07-06] MEDS: Hydrocortisone Sod Succ/PF 100 mg/2 ml Vial IVP SCH (08:11)
[2021-07-06] MEDS: levETIRAcetam in NS 1,000 MG in Premix Bag 1 BAG IVPB SCH ×2 (08:33→21:41)
[2021-07-06] MEDS: Propofol 1,000 MG/100 ML VIAL IV PRN (09:31)
[2021-07-06] MEDS: Dexmedetomidine In 0.9 % NaCl 100 ML IVPB SCH ×2 (09:31→22:34)
[2021-07-06] MEDS ORDERED: Enoxaparin Sodium 40 MG/0.4 ML SYRINGE SC SCH (11:00)
[2021-07-06] MEDS: Enoxaparin Sodium 40 MG/0.4 ML SYRINGE SC SCH (21:41)
[2021-07-07] MEDS: Piperacillin/Tazobactam 3.375 GM in Sodium Chloride 0.9% 100 ML IVPB SCH ×3 (01:30→17:28)
[2021-07-07 04:49] LABS: ALT (SGPT) 10 U/L (8-55); AST (SGOT) 18 U/L (5-34); Albumin 2.4 g/dL (3.4-4.8); Alkaline Phosphatase 35 U/L (40-110); Anion Gap 11 mmol/L (10-20); BUN (Urea Nitrogen) 17 mg/dL (9.8-20.1); Bilirubin, Total 0.7 mg/dL (0.2-1.2); Calc. Creatinine Clearance 66 mL/min (70-130); Calcium 7.8 mg/dL (7.8-10.44); Carbon Dioxide 23 mmol/L (23-31); Chloride 112 mmol/L (98-107); Globulin 2.1 g/dL (2.4-3.5); Glucose 136 mg/dL (83-110); Potassium 3.2 mmol/L (3.5-5.1); Protein, Total 4.5 g/dL (5.8-8.1); Sodium 143 mmol/L (136-145)
[2021-07-07] MEDS: Dexmedetomidine In 0.9 % NaCl 100 ML IVPB SCH ×2 (05:07→21:15)
[2021-07-07] MEDS ORDERED: Potassium Chloride 40 MEQ in Premix Bag 1 BAG IVPB SCH ×2 (06:00→18:00)
[2021-07-07 07:48] LABS: Actual Bicarbonate (HCO3a) 24.2 mEq/L (22-28); Base Excess (BEa) 1.2 mEq/L (-2.0 to +3.0); CO2 Tension 31.4 mmHg (35.0-45.0); Calcium, Ionized (arterial) 1.12 mmol/L (1.12-1.30); Carboxyhemoglobin (COHb) 0.7 gm% (0.0-3.0); Hemoglobin (Hb) 8.1 g/dL (12.0-16.0); O2 Tension (PaO2), arterial 86.6 mmHg (> 60.0); Potassium - ABG Lab 3.8 mmol/L (3.70-5.30); Puncture Site RRA
[2021-07-07 08:03] LABS: Band 12 % (5-11); Eosinophils 2 % (0-10); Hemoglobin 7.7 g/dL (12.0-15.5); Lymphocytes 31 % (21-51); MDiff Complete? YES; Macrocytosis SLIGHT = 6-15 cells (100X) (0-5/hpf); Mean Corpuscular HGB CONC 32.6 g/dL (32.0-36.0); Mean Corpuscular Hemoglobin 31.3 pg (27.0-33.0); Mean Corpuscular Volume 95.9 fl (81.6-98.3); Mean Platelet Volume 11.3 fl (7.4-10.4); Microcytosis SLIGHT = 6-15 cells (100X) (0-5/hpf); Monocytes 5 % (0-10); Neutrophil 49 % (42-75); Platelet Count 105 10x3/uL (150-450); Platelet Morphology Comment Appears Decreased; Polychromasia SLIGHT = 2-3 cells (100X) (0-2/hpf); RBC Distribution Width 16.2 % (11.5-14.5); Reactive Lymphocytes 1 % (0-10); Red Blood Cell (RBC) Count 2.46 10x6/uL (3.90-5.03); White Blood Cell (WBC) Count 5.5 10x3/uL (3.5-10.5)
[2021-07-07] MEDS: levETIRAcetam in NS 1,000 MG in Premix Bag 1 BAG IVPB SCH ×2 (08:08→20:42)
[2021-07-07] MEDS: Enoxaparin Sodium 40 MG/0.4 ML SYRINGE SC SCH ×2 (08:09→21:03)
[2021-07-07] MEDS: Hydrocortisone Sod Succ/PF 100 mg/2 ml Vial IVP SCH (08:09)
[2021-07-07] MEDS: Famotidine/PF 20 mg/2ml Vial SLOW IVP SCH ×2 (08:09→21:03)
[2021-07-07] MEDS ORDERED: VANCOMYCIN 1.25 GM/250 ML BAG 1.25 GM in Premix Bag 1 BAG IVPB SCH (09:00)
[2021-07-07] MEDS ORDERED: Acetaminophen 325 MG Suppository PR PRN (09:56)
[2021-07-07 16:16] LABS: Potassium 3.3 mmol/L (3.5-5.1)
[2021-07-07 16:37] LABS: Heparin-Induced Ab (HITA) 0.069 OD (0.000-0.400)
[2021-07-07 19:00] LABS: Platelet Count 128 10x3/uL (150-450)
[2021-07-07] MEDS: hydrALAZINE 20 MG/ML VIAL SLOW IVP PRN (21:51)
[2021-07-07] MEDS: Lorazepam 2 MG/ML VIAL SLOW IVP PRN (22:15)
[2021-07-07] MEDS: Acetaminophen 650 MG/20.3 ML UDCUP PER TUBE PRN (23:19)
[2021-07-08] MEDS: Piperacillin/Tazobactam 3.375 GM in Sodium Chloride 0.9% 100 ML IVPB SCH ×3 (01:46→18:10)
[2021-07-08 04:19] LABS: Hemoglobin 8.5 g/dL (12.0-15.5); Mean Corpuscular HGB CONC 32.2 g/dL (32.0-36.0); Mean Corpuscular Hemoglobin 31.3 pg (27.0-33.0); Mean Corpuscular Volume 97.1 fl (81.6-98.3); Mean Platelet Volume 10.7 fl (7.4-10.4); Platelet Count 154 10x3/uL (150-450); RBC Distribution Width 16.1 % (11.5-14.5); Red Blood Cell (RBC) Count 2.72 10x6/uL (3.90-5.03); White Blood Cell (WBC) Count 10.3 10x3/uL (3.5-10.5)
[2021-07-08 04:40] LABS: ALT (SGPT) 11 U/L (8-55); AST (SGOT) 21 U/L (5-34); Albumin 2.7 g/dL (3.4-4.8); Alkaline Phosphatase 50 U/L (40-110); Anion Gap 12 mmol/L (10-20); BUN (Urea Nitrogen) 15 mg/dL (9.8-20.1); Bilirubin, Total 0.7 mg/dL (0.2-1.2); Calc. Creatinine Clearance 69 mL/min (70-130); Calcium 8.5 mg/dL (7.8-10.44); Carbon Dioxide 23 mmol/L (23-31); Chloride 111 mmol/L (98-107); Globulin 2.5 g/dL (2.4-3.5); Glucose 125 mg/dL (83-110); Potassium 3.2 mmol/L (3.5-5.1); Protein, Total 5.2 g/dL (5.8-8.1); Sodium 143 mmol/L (136-145)
[2021-07-08 04:51] LABS: Potassium - ABG Lab 3.2 mmol/L (3.70-5.30); Puncture Site RBA
[2021-07-08 04:56] LABS: Actual Bicarbonate (HCO3a) 20.7 mEq/L (22-28); Base Excess (BEa) -1.8 mEq/L (-2.0 to +3.0); CO2 Tension 26.6 mmHg (35.0-45.0); Calcium, Ionized (arterial) 1.14 mmol/L (1.12-1.30); Carboxyhemoglobin (COHb) 0.7 gm% (0.0-3.0); Hemoglobin (Hb) 8.5 g/dL (12.0-16.0); O2 Tension (PaO2), arterial 97.2 mmHg (> 60.0); pH, Arterial 7.51 (7.35-7.45)
[2021-07-08] MEDS ORDERED: Potassium Bicarbonate/Cit Ac 20 MEQ TAB PER TUBE SCH (05:15)
[2021-07-08 05:17] LABS: MDiff Complete? YES
[2021-07-08 05:21] LABS: Band 13 % (5-11); Eosinophils 1 % (0-10); Lymphocytes 20 % (21-51); Monocytes 10 % (0-10); Neutrophil 56 % (42-75)
[2021-07-08 05:22] LABS: Platelet Morphology Comment Appears Adequate
[2021-07-08 05:25] LABS: Macrocytosis SLIGHT = 6-15 cells (100X) (0-5/hpf); Polychromasia SLIGHT = 2-3 cells (100X) (0-2/hpf)
[2021-07-08] MEDS ORDERED: Communication Order-Pharmacy FS PRN (07:49)
[2021-07-08] MEDS: Hydrocortisone Sod Succ/PF 100 mg/2 ml Vial IVP SCH (08:34)
[2021-07-08] MEDS: Famotidine/PF 20 mg/2ml Vial SLOW IVP SCH ×2 (08:34→20:13)
[2021-07-08] MEDS: levETIRAcetam in NS 1,000 MG in Premix Bag 1 BAG IVPB SCH ×2 (08:35→20:13)
[2021-07-08] MEDS: Enoxaparin Sodium 60 MG/0.6 ML SYRINGE SC SCH ×2 (08:37→20:13)
[2021-07-08 08:59] LABS: Hemoglobin 8.6 g/dL (12.0-15.5); Platelet Count 173 10x3/uL (150-450)
[2021-07-08] MEDS ORDERED: Vancomycin HCl 1 GM in Sodium Chloride 0.9% 250 ML 250 ML IVPB SCH (09:00)
[2021-07-08] MEDS: Labetalol HCl 100 MG/20 ML VIAL SLOW IVP PRN ×2 (09:20→14:51)
[2021-07-08 10:47] LABS: Potassium 2.9 mmol/L (3.5-5.1)
[2021-07-08] MEDS: Potassium Bicarbonate/Cit Ac 20 MEQ TAB PER TUBE SCH ×2 (12:04→16:44)
[2021-07-08] MEDS: hydrALAZINE 20 MG/ML VIAL SLOW IVP PRN ×2 (12:04→17:07)
[2021-07-08] MEDS ORDERED: Scopolamine 1.5 mg/72 hour Patch TOP SCH (13:00)
[2021-07-08] MEDS ORDERED: Lorazepam 2 MG/ML VIAL SLOW IVP SCH (13:30)
[2021-07-08] MEDS ORDERED: Norepinephrine 8 MG/0.9% NS 250 ML ONE (15:07)
[2021-07-08] MEDS: Acetaminophen 650 MG/20.3 ML UDCUP PER TUBE PRN (21:02)
[2021-07-09] MEDS: Piperacillin/Tazobactam 3.375 GM in Sodium Chloride 0.9% 100 ML IVPB SCH ×3 (02:02→18:11)
[2021-07-09 04:22] LABS: Phosphorus 3.4 mg/dL (2.3-4.7)
[2021-07-09 04:26] LABS: ALT (SGPT) 10 U/L (8-55); AST (SGOT) 21 U/L (5-34); Albumin 2.7 g/dL (3.4-4.8); Alkaline Phosphatase 61 U/L (40-110); Anion Gap 16 mmol/L (10-20); BUN (Urea Nitrogen) 18 mg/dL (9.8-20.1); Bilirubin, Total 0.7 mg/dL (0.2-1.2); Calc. Creatinine Clearance 59 mL/min (70-130); Calcium 8.8 mg/dL (7.8-10.44); Carbon Dioxide 22 mmol/L (23-31); Chloride 112 mmol/L (98-107); Globulin 2.7 g/dL (2.4-3.5); Glucose 114 mg/dL (83-110); Magnesium 1.9 mg/dL (1.6-2.6); Potassium 4.3 mmol/L (3.5-5.1); Protein, Total 5.4 g/dL (5.8-8.1); Sodium 146 mmol/L (136-145)
[2021-07-09] MEDS ORDERED: Magnesium 2 GM/50 ML 2 GM in Premix Bag 1 BAG IVPB SCH (04:30)
[2021-07-09] MEDS: Acetaminophen 650 MG/20.3 ML UDCUP PER TUBE PRN ×3 (04:55→21:40)
[2021-07-09] MEDS: hydrALAZINE 20 MG/ML VIAL SLOW IVP PRN ×3 (04:55→20:06)
[2021-07-09 06:15] LABS: Anisocytosis SLIGHT = 6-15 cells (100X) (0-5/hpf); Band 16 % (5-11); Basophilic Stippling SLIGHT = 1-2 cells (100X) (None Seen); Hypochromia SLIGHT = 6-15 cells (100X) (0-5/hpf); Lymphocytes 20 % (21-51); MDiff Complete? YES; Macrocytosis SLIGHT = 6-15 cells (100X) (0-5/hpf); Microcytosis SLIGHT = 6-15 cells (100X) (0-5/hpf); Monocytes 6 % (0-10); Neutrophil 57 % (42-75); Platelet Morphology Comment Appears Adequate; Polychromasia SLIGHT = 2-3 cells (100X) (0-2/hpf); Reactive Lymphocytes 1 % (0-10)
[2021-07-09 06:22] LABS: Hemoglobin 6.4 g/dL (12.0-15.5); Mean Corpuscular HGB CONC 33.7 g/dL (32.0-36.0); Mean Corpuscular Hemoglobin 32.2 pg (27.0-33.0); Mean Corpuscular Volume 95.5 fl (81.6-98.3); Red Blood Cell (RBC) Count 1.99 10x6/uL (3.90-5.03); White Blood Cell (WBC) Count 12.3 10x3/uL (3.5-10.5)
[2021-07-09 06:23] LABS: Mean Platelet Volume 11.4 fl (7.4-10.4); Platelet Count 215 10x3/uL (150-450); RBC Distribution Width 16.1 % (11.5-14.5)
[2021-07-09 08:33] LABS: Vancomycin, Trough 4.5 ug/mL
[2021-07-09] MEDS ORDERED: Vancomycin HCl 1 GM in Sodium Chloride 0.9% 250 ML 250 ML IVPB SCH (09:00)
[2021-07-09] MEDS: levETIRAcetam in NS 1,000 MG in Premix Bag 1 BAG IVPB SCH ×2 (09:27→20:05)
[2021-07-09] MEDS: Enoxaparin Sodium 40 MG/0.4 ML SYRINGE SC SCH ×2 (09:28→20:05)
[2021-07-09] MEDS: Famotidine/PF 20 mg/2ml Vial SLOW IVP SCH ×2 (09:29→20:06)
[2021-07-09] MEDS: Hydrocortisone Sod Succ/PF 100 mg/2 ml Vial IVP SCH (09:29)
[2021-07-09 18:23] LABS: Hemoglobin 11.5 g/dL (12.0-15.5); Platelet Count 199 10x3/uL (150-450)
[2021-07-09] MEDS: Vancomycin HCl 750 MG in Sodium Chloride 0.9% 250 ML 250 ML IVPB SCH (20:06)
[2021-07-09] MEDS ORDERED: Lorazepam 2 MG/ML VIAL SLOW IVP SCH (23:15)
[2021-07-10] MEDS: Piperacillin/Tazobactam 3.375 GM in Sodium Chloride 0.9% 100 ML IVPB SCH ×3 (02:56→18:02)
[2021-07-10 04:27] LABS: ALT (SGPT) 11 U/L (8-55); AST (SGOT) 23 U/L (5-34); Albumin 2.9 g/dL (3.4-4.8); Alkaline Phosphatase 77 U/L (40-110); Anion Gap 15 mmol/L (10-20); BUN (Urea Nitrogen) 22 mg/dL (9.8-20.1); Bilirubin, Total 1.1 mg/dL (0.2-1.2); Calc. Creatinine Clearance 58 mL/min (70-130); Carbon Dioxide 23 mmol/L (23-31); Chloride 112 mmol/L (98-107); Glucose 127 mg/dL (83-110); Magnesium 2.1 mg/dL (1.6-2.6); Potassium 3.4 mmol/L (3.5-5.1); Protein, Total 5.9 g/dL (5.8-8.1); Sodium 147 mmol/L (136-145)
[2021-07-10 04:31] LABS: Hemoglobin 12.1 g/dL (12.0-15.5); Mean Corpuscular HGB CONC 33.7 g/dL (32.0-36.0); Mean Corpuscular Hemoglobin 31.3 pg (27.0-33.0); Mean Corpuscular Volume 92.8 fl (81.6-98.3); Mean Platelet Volume 10.8 fl (7.4-10.4); Platelet Count 224 10x3/uL (150-450); RBC Distribution Width 16.8 % (11.5-14.5); Red Blood Cell (RBC) Count 3.87 10x6/uL (3.90-5.03); White Blood Cell (WBC) Count 15.2 10x3/uL (3.5-10.5)
[2021-07-10] MEDS ORDERED: Potassium Bicarbonate/Cit Ac 20 MEQ TAB PER TUBE SCH (05:15)
[2021-07-10 06:23] LABS: Band 3 % (5-11); Lymphocytes 11 % (21-51); Monocytes 6 % (0-10)
[2021-07-10 06:24] LABS: Neutrophil 80 % (42-75); Platelet Morphology Comment Appears Adequate; RBC Morphology Normal
[2021-07-10] MEDS: levETIRAcetam in NS 1,000 MG in Premix Bag 1 BAG IVPB SCH ×2 (08:07→21:00)
[2021-07-10] MEDS: Famotidine/PF 20 mg/2ml Vial SLOW IVP SCH ×2 (08:24→21:00)
[2021-07-10] MEDS: Hydrocortisone Sod Succ/PF 100 mg/2 ml Vial IVP SCH (08:24)
[2021-07-10] MEDS: Acetaminophen 650 MG/20.3 ML UDCUP PER TUBE PRN (08:24)
[2021-07-10] MEDS: Vancomycin HCl 750 MG in Sodium Chloride 0.9% 250 ML 250 ML IVPB SCH (08:25)
[2021-07-10] MEDS: Enoxaparin Sodium 40 MG/0.4 ML SYRINGE SC SCH ×2 (08:27→21:01)
[2021-07-10] MEDS ORDERED: Furosemide 40 MG/4 ML VIAL IVP SCH (09:30)
[2021-07-10 20:06] LABS: Vancomycin, Trough 11.1 ug/mL
[2021-07-10] MEDS: Metoprolol Tartrate 25 MG TAB PER TUBE SCH (21:00)
[2021-07-10] MEDS: Vancomycin HCl 1 GM in Sodium Chloride 0.9% 250 ML 250 ML IVPB SCH (21:28)
[2021-07-10] MEDS: Dexmedetomidine In 0.9 % NaCl 100 ML IVPB SCH (22:53)
[2021-07-11] MEDS: Piperacillin/Tazobactam 3.375 GM in Sodium Chloride 0.9% 100 ML IVPB SCH ×3 (03:19→17:11)
[2021-07-11 03:33] LABS: Hemoglobin 11.2 g/dL (12.0-15.5); Mean Corpuscular HGB CONC 33.7 g/dL (32.0-36.0); Mean Corpuscular Hemoglobin 31.5 pg (27.0-33.0); Mean Corpuscular Volume 93.5 fl (81.6-98.3); Mean Platelet Volume 10.5 fl (7.4-10.4); Platelet Count 216 10x3/uL (150-450); RBC Distribution Width 15.9 % (11.5-14.5); Red Blood Cell (RBC) Count 3.55 10x6/uL (3.90-5.03); White Blood Cell (WBC) Count 10.7 10x3/uL (3.5-10.5)
[2021-07-11 03:50] LABS: ALT (SGPT) 11 U/L (8-55); AST (SGOT) 26 U/L (5-34); Albumin 2.5 g/dL (3.4-4.8); Alkaline Phosphatase 77 U/L (40-110); Anion Gap 13 mmol/L (10-20); BUN (Urea Nitrogen) 30 mg/dL (9.8-20.1); Bilirubin, Total 0.8 mg/dL (0.2-1.2); Calc. Creatinine Clearance 63 mL/min (70-130); Calcium 8.6 mg/dL (7.8-10.44); Carbon Dioxide 27 mmol/L (23-31); Chloride 112 mmol/L (98-107); Globulin 2.8 g/dL (2.4-3.5); Glucose 127 mg/dL (83-110); Potassium 3.6 mmol/L (3.5-5.1); Protein, Total 5.3 g/dL (5.8-8.1); Sodium 148 mmol/L (136-145)
[2021-07-11 04:47] LABS: Band 3 % (5-11); Eosinophils 1 % (0-10); Lymphocytes 10 % (21-51); Monocytes 5 % (0-10); Reactive Lymphocytes 1 % (0-10)
[2021-07-11 04:49] LABS: Platelet Morphology Comment Appears Adequate; RBC Morphology Normal
[2021-07-11] MEDS: Dexmedetomidine In 0.9 % NaCl 100 ML IVPB SCH (08:58)
[2021-07-11] MEDS: Hydrocortisone Sod Succ/PF 100 mg/2 ml Vial IVP SCH (10:50)
[2021-07-11] MEDS: Vancomycin HCl 1 GM in Sodium Chloride 0.9% 250 ML 250 ML IVPB SCH ×2 (10:50→21:04)
[2021-07-11] MEDS: Famotidine/PF 20 mg/2ml Vial SLOW IVP SCH ×2 (10:50→21:04)
[2021-07-11] MEDS: Enoxaparin Sodium 40 MG/0.4 ML SYRINGE SC SCH ×2 (10:50→21:03)
[2021-07-11] MEDS: Metoprolol Tartrate 25 MG TAB PER TUBE SCH ×2 (10:51→21:04)
[2021-07-11] MEDS: levETIRAcetam in NS 1,000 MG in Premix Bag 1 BAG IVPB SCH ×2 (10:52→21:20)
[2021-07-11] MEDS: hydrALAZINE 20 MG/ML VIAL SLOW IVP PRN (13:07)
[2021-07-11 17:57] LABS: Hemoglobin 9.7 g/dL (12.0-15.5); Platelet Count 203 10x3/uL (150-450)
[2021-07-11] MEDS ORDERED: Vecuronium 10 MG VIAL IV SCH (19:00)
[2021-07-12] MEDS: Dexmedetomidine In 0.9 % NaCl 100 ML IVPB SCH ×3 (02:00→22:09)
[2021-07-12] MEDS: Piperacillin/Tazobactam 3.375 GM in Sodium Chloride 0.9% 100 ML IVPB SCH ×3 (02:13→17:06)
[2021-07-12 04:15] LABS: Hemoglobin 10.6 g/dL (12.0-15.5); Mean Corpuscular HGB CONC 32.2 g/dL (32.0-36.0); Mean Corpuscular Hemoglobin 30.8 pg (27.0-33.0); Mean Corpuscular Volume 95.6 fl (81.6-98.3); Mean Platelet Volume 10.5 fl (7.4-10.4); Platelet Count 224 10x3/uL (150-450); RBC Distribution Width 15.8 % (11.5-14.5); Red Blood Cell (RBC) Count 3.44 10x6/uL (3.90-5.03); White Blood Cell (WBC) Count 8.8 10x3/uL (3.5-10.5)
[2021-07-12 04:29] LABS: ALT (SGPT) 14 U/L (8-55); AST (SGOT) 33 U/L (5-34); Albumin 2.5 g/dL (3.4-4.8); Alkaline Phosphatase 82 U/L (40-110); Anion Gap 15 mmol/L (10-20); BUN (Urea Nitrogen) 34 mg/dL (9.8-20.1); Bilirubin, Total 0.6 mg/dL (0.2-1.2); Calc. Creatinine Clearance 62 mL/min (70-130); Calcium 8.5 mg/dL (7.8-10.44); Carbon Dioxide 26 mmol/L (23-31); Chloride 112 mmol/L (98-107); Globulin 2.7 g/dL (2.4-3.5); Glucose 126 mg/dL (83-110); Potassium 3.5 mmol/L (3.5-5.1); Protein, Total 5.2 g/dL (5.8-8.1); Sodium 149 mmol/L (136-145)
[2021-07-12] MEDS ORDERED: Potassium Bicarbonate/Cit Ac 20 MEQ TAB PER TUBE SCH (05:30)
[2021-07-12 05:46] LABS: Band 12 % (5-11); Lymphocytes 18 % (21-51); Monocytes 5 % (0-10); Neutrophil 65 % (42-75)
[2021-07-12 05:47] LABS: Platelet Morphology Comment Appears Adequate; RBC Morphology Normal
[2021-07-12] MEDS: levETIRAcetam in NS 1,000 MG in Premix Bag 1 BAG IVPB SCH ×2 (07:58→22:56)
[2021-07-12 08:19] LABS: Vancomycin, Trough 17.2 ug/mL
[2021-07-12] MEDS: Famotidine/PF 20 mg/2ml Vial SLOW IVP SCH ×2 (08:22→22:54)
[2021-07-12] MEDS: Hydrocortisone Sod Succ/PF 100 mg/2 ml Vial IVP SCH (08:22)
[2021-07-12] MEDS: Enoxaparin Sodium 40 MG/0.4 ML SYRINGE SC SCH ×2 (08:23→22:55)
[2021-07-12] MEDS: Metoprolol Tartrate 25 MG TAB PER TUBE SCH ×2 (08:23→22:55)
[2021-07-12] MEDS: Vancomycin HCl 1 GM in Sodium Chloride 0.9% 250 ML 250 ML IVPB SCH ×2 (08:24→22:54)
[2021-07-12] MEDS ORDERED: Piperacillin/Tazobactam 3.375 GM VIAL ONE (10:01)
[2021-07-12] MEDS ORDERED: Sodium Chloride 0.9% 100 ML ONE (10:01)
[2021-07-12] MEDS: hydrALAZINE 20 MG/ML VIAL SLOW IVP PRN (17:07)
[2021-07-13] MEDS: hydrALAZINE 20 MG/ML VIAL SLOW IVP PRN ×2 (01:19→13:55)
[2021-07-13] MEDS: Piperacillin/Tazobactam 3.375 GM in Sodium Chloride 0.9% 100 ML IVPB SCH ×3 (03:46→17:22)
[2021-07-13 03:47] LABS: Hemoglobin 9.6 g/dL (12.0-15.5); Mean Corpuscular HGB CONC 32.8 g/dL (32.0-36.0); Mean Corpuscular Hemoglobin 31.3 pg (27.0-33.0); Mean Corpuscular Volume 95.4 fl (81.6-98.3); Mean Platelet Volume 10.5 fl (7.4-10.4); Platelet Count 216 10x3/uL (150-450); RBC Distribution Width 15.4 % (11.5-14.5); Red Blood Cell (RBC) Count 3.07 10x6/uL (3.90-5.03); White Blood Cell (WBC) Count 7.6 10x3/uL (3.5-10.5)
[2021-07-13 03:59] LABS: ALT (SGPT) 11 U/L (8-55); AST (SGOT) 23 U/L (5-34); Albumin 2.4 g/dL (3.4-4.8); Alkaline Phosphatase 80 U/L (40-110); Anion Gap 13 mmol/L (10-20); BUN (Urea Nitrogen) 27 mg/dL (9.8-20.1); Bilirubin, Total 0.6 mg/dL (0.2-1.2); Calc. Creatinine Clearance 0 mL/min (70-130); Calcium 8.4 mg/dL (7.8-10.44); Carbon Dioxide 26 mmol/L (23-31); Chloride 114 mmol/L (98-107); Globulin 2.6 g/dL (2.4-3.5); Glucose 125 mg/dL (83-110); Potassium 3.3 mmol/L (3.5-5.1); Sodium 150 mmol/L (136-145)
[2021-07-13 05:41] LABS: Band 3 % (5-11); Eosinophils 1 % (0-10); Lymphocytes 13 % (21-51); Monocytes 5 % (0-10); Neutrophil 78 % (42-75)
[2021-07-13 05:43] LABS: Platelet Morphology Comment Appears Adequate; RBC Morphology Normal
[2021-07-13] MEDS: Potassium Chloride 20 MEQ in Premix Bag 1 BAG IVPB SCH ×2 (06:24→08:39)
[2021-07-13] MEDS: Dexmedetomidine In 0.9 % NaCl 100 ML IVPB SCH (07:40)
[2021-07-13] MEDS: Enoxaparin Sodium 40 MG/0.4 ML SYRINGE SC SCH ×2 (08:40→21:10)
[2021-07-13] MEDS: levETIRAcetam in NS 1,000 MG in Premix Bag 1 BAG IVPB SCH (08:40)
[2021-07-13] MEDS: Metoprolol Tartrate 25 MG TAB PER TUBE SCH ×2 (08:41→21:10)
[2021-07-13] MEDS: Hydrocortisone Sod Succ/PF 100 mg/2 ml Vial IVP SCH (08:41)
[2021-07-13] MEDS: Famotidine/PF 20 mg/2ml Vial SLOW IVP SCH ×2 (08:41→21:10)
[2021-07-13] MEDS: Vancomycin HCl 1 GM in Sodium Chloride 0.9% 250 ML 250 ML IVPB SCH ×2 (08:48→21:10)
[2021-07-13] MEDS: Midazolam HCl 2 mg/2 ml Vial SLOW IVP PRN (14:59)
[2021-07-13] MEDS ORDERED: Midazolam HCl 2 mg/2 ml Vial SLOW IVP PRN (17:19)
[2021-07-13] MEDS: Labetalol HCl 100 MG/20 ML VIAL SLOW IVP PRN (18:30)
[2021-07-13 20:44] LABS: Vancomycin, Trough 19.5 ug/mL
[2021-07-14] MEDS: Piperacillin/Tazobactam 3.375 GM in Sodium Chloride 0.9% 100 ML IVPB SCH (01:12)
[2021-07-14 03:52] LABS: ALT (SGPT) 11 U/L (8-55); AST (SGOT) 19 U/L (5-34); Albumin 2.5 g/dL (3.4-4.8); Alkaline Phosphatase 84 U/L (40-110); Anion Gap 11 mmol/L (10-20); BUN (Urea Nitrogen) 24 mg/dL (9.8-20.1); Bilirubin, Total 0.6 mg/dL (0.2-1.2); Calc. Creatinine Clearance 71 mL/min (70-130); Calcium 8.4 mg/dL (7.8-10.44); Carbon Dioxide 26 mmol/L (23-31); Chloride 111 mmol/L (98-107); Globulin 2.8 g/dL (2.4-3.5); Glucose 130 mg/dL (83-110); Potassium 3.4 mmol/L (3.5-5.1); Protein, Total 5.3 g/dL (5.8-8.1); Sodium 145 mmol/L (136-145)
[2021-07-14] MEDS ORDERED: Potassium Bicarbonate/Cit Ac 20 MEQ TAB PER TUBE SCH (05:00)
[2021-07-14] MEDS: Dexmedetomidine In 0.9 % NaCl 100 ML IVPB SCH ×2 (07:49→16:07)
[2021-07-14] MEDS ORDERED: Furosemide 40 MG/4 ML VIAL SLOW IVP SCH (08:30)
[2021-07-14] MEDS: Enoxaparin Sodium 40 MG/0.4 ML SYRINGE SC SCH ×2 (09:06→21:06)
[2021-07-14] MEDS: Vancomycin HCl 1 GM in Sodium Chloride 0.9% 250 ML 250 ML IVPB SCH ×2 (09:06→21:08)
[2021-07-14] MEDS: Famotidine/PF 20 mg/2ml Vial SLOW IVP SCH ×2 (09:06→21:06)
[2021-07-14] MEDS: Hydrocortisone Sod Succ/PF 100 mg/2 ml Vial IVP SCH (09:06)
[2021-07-14] MEDS: Metoprolol Tartrate 25 MG TAB PER TUBE SCH ×2 (09:07→21:07)
[2021-07-14] MEDS: hydrALAZINE 20 MG/ML VIAL SLOW IVP PRN ×2 (16:06→21:00)
[2021-07-14] MEDS: Labetalol HCl 100 MG/20 ML VIAL SLOW IVP PRN (17:23)
[2021-07-15] MEDS: Dexmedetomidine In 0.9 % NaCl 100 ML IVPB SCH (02:25)
[2021-07-15 03:47] LABS: #Eosinphils 0.1 10x3/uL (0.0-0.5); #Monocytes 0.4 10x3/uL (0.0-1.1); %Basophils 0.7 % (0.0-2.0); %Eosinophils 1.1 % (0.0-6.0); %Lymphocytes 18.1 % (18.0-47.0); %Monocytes 6.5 % (0.0-10.0); %Neutrophils 72.5 % (40.0-75.0); Hemoglobin 9.8 g/dL (12.0-15.5); Mean Corpuscular HGB CONC 32.5 g/dL (32.0-36.0); Mean Corpuscular Hemoglobin 30.4 pg (27.0-33.0); Mean Corpuscular Volume 93.8 fl (81.6-98.3); Mean Platelet Volume 10.3 fl (7.4-10.4); Platelet Count 233 10x3/uL (150-450); RBC Distribution Width 14.6 % (11.5-14.5); Red Blood Cell (RBC) Count 3.22 10x6/uL (3.90-5.03); White Blood Cell (WBC) Count 5.5 10x3/uL (3.5-10.5)
[2021-07-15 04:13] LABS: ALT (SGPT) 8 U/L (8-55); AST (SGOT) 21 U/L (5-34); Albumin 2.5 g/dL (3.4-4.8); Alkaline Phosphatase 86 U/L (40-110); Anion Gap 15 mmol/L (10-20); BUN (Urea Nitrogen) 18 mg/dL (9.8-20.1); Bilirubin, Total 0.6 mg/dL (0.2-1.2); Calc. Creatinine Clearance 7070 mL/min (70-130); Calcium 8.3 mg/dL (7.8-10.44); Carbon Dioxide 26 mmol/L (23-31); Chloride 107 mmol/L (98-107); Globulin 2.7 g/dL (2.4-3.5); Glucose 133 mg/dL (83-110); Potassium 3.2 mmol/L (3.5-5.1); Protein, Total 5.2 g/dL (5.8-8.1); Sodium 145 mmol/L (136-145)
[2021-07-15] MEDS ORDERED: Potassium Bicarbonate/Cit Ac 20 MEQ TAB PO SCH (05:00)
[2021-07-15] MEDS: Acetaminophen 650 MG/20.3 ML UDCUP PER TUBE PRN ×2 (05:05→12:04)
[2021-07-15] MEDS: Enoxaparin Sodium 40 MG/0.4 ML SYRINGE SC SCH ×2 (08:41→20:06)
[2021-07-15] MEDS: ALPRAZolam 0.25 MG TAB PO SCH ×2 (08:42→20:06)
[2021-07-15] MEDS: Metoprolol Tartrate 25 MG TAB PER TUBE SCH ×2 (08:42→20:06)
[2021-07-15] MEDS: Famotidine/PF 20 mg/2ml Vial SLOW IVP SCH ×2 (08:43→20:07)
[2021-07-15 08:45] LABS: Vancomycin, Trough 19.6 ug/mL
[2021-07-15] MEDS: Vancomycin HCl 750 MG in Sodium Chloride 0.9% 250 ML 250 ML IVPB SCH ×2 (09:51→20:05)
[2021-07-15 11:40] LABS: Bilirubin Neg (Negative); Blood, Urine 150 (Negative); Clarity Clear (Clear); Glucose, Urine (Dipstick) Normal (Negative); Ketone, Urine Negative (Negative); Leukocyte 500 (Negative); Nitrite Negative (Negative); Protein, Urine (Dipstick) 30 mg/dl (Neg-Trace); Specific Gravity, Urine 1.015 (1.002-1.036); Urobilinogen 12 mg/dL (Less than 2); pH, Urine 6.5 (5.0-9.0)
[2021-07-15 12:51] LABS: Bacteria/HPF 1+ HPF (None Seen); RBC/HPF 21-50 HPF (0-3); WBC/HPF 21-50 HPF (0-3)
[2021-07-15 12:52] LABS: Yeast-Budding 1+ HPF (None Seen); Yeast-Hyphae 2+ HPF (None Seen)
[2021-07-15 12:53] LABS: Urine Culture Reflex No No
[2021-07-15] MEDS: hydrALAZINE 20 MG/ML VIAL SLOW IVP PRN (16:29)
[2021-07-15] MEDS ORDERED: Furosemide 20 MG/2 ML VIAL SLOW IVP SCH (17:15)
[2021-07-15] MEDS: Labetalol HCl 100 MG/20 ML VIAL SLOW IVP PRN ×2 (17:27→22:32)
[2021-07-15] MEDS: Racepinephrine 2.25% 0.5 ML NEB NEB SCH (21:07)
[2021-07-16] MEDS: hydrALAZINE 20 MG/ML VIAL SLOW IVP PRN ×2 (00:08→04:10)
[2021-07-16] MEDS: Racepinephrine 2.25% 0.5 ML NEB NEB SCH ×2 (02:36→07:28)
[2021-07-16] MEDS: Labetalol HCl 100 MG/20 ML VIAL SLOW IVP PRN ×2 (03:18→14:24)
[2021-07-16 03:43] LABS: ALT (SGPT) 9 U/L (8-55); AST (SGOT) 27 U/L (5-34); Albumin 2.8 g/dL (3.4-4.8); Alkaline Phosphatase 95 U/L (40-110); Anion Gap 15 mmol/L (10-20); BUN (Urea Nitrogen) 14 mg/dL (9.8-20.1); Bilirubin, Total 0.7 mg/dL (0.2-1.2); Calc. Creatinine Clearance 66 mL/min (70-130); Calcium 8.5 mg/dL (7.8-10.44); Carbon Dioxide 25 mmol/L (23-31); Chloride 105 mmol/L (98-107); Globulin 3.2 g/dL (2.4-3.5); Glucose 115 mg/dL (83-110); Potassium 3.1 mmol/L (3.5-5.1); Sodium 142 mmol/L (136-145)
[2021-07-16 03:44] LABS: #Eosinphils 0.1 10x3/uL (0.0-0.5); #Monocytes 0.4 10x3/uL (0.0-1.1); #Neutrophils 5.1 10x3/uL (1.5-8.4); %Basophils 0.6 % (0.0-2.0); %Eosinophils 1.6 % (0.0-6.0); %Lymphocytes 13.3 % (18.0-47.0); %Monocytes 6.6 % (0.0-10.0); %Neutrophils 76.9 % (40.0-75.0); Hemoglobin 10.6 g/dL (12.0-15.5); Mean Corpuscular HGB CONC 32.4 g/dL (32.0-36.0); Mean Corpuscular Hemoglobin 30.4 pg (27.0-33.0); Mean Corpuscular Volume 93.7 fl (81.6-98.3); Mean Platelet Volume 10.4 fl (7.4-10.4); Platelet Count 297 10x3/uL (150-450); RBC Distribution Width 14.6 % (11.5-14.5); Red Blood Cell (RBC) Count 3.49 10x6/uL (3.90-5.03); White Blood Cell (WBC) Count 6.7 10x3/uL (3.5-10.5)
[2021-07-16] MEDS ORDERED: Potassium Bicarbonate/Cit Ac 20 MEQ TAB PO SCH (04:00)
[2021-07-16] MEDS: ALPRAZolam 0.25 MG TAB PO SCH ×2 (08:46→20:45)
[2021-07-16] MEDS: Metoprolol Tartrate 25 MG TAB PER TUBE SCH ×2 (08:47→20:46)
[2021-07-16] MEDS: Lisinopril 5 MG TAB PO SCH ×2 (08:47→20:46)
[2021-07-16] MEDS: Amlodipine 10 MG TAB PO SCH (08:47)
[2021-07-16] MEDS: Vancomycin HCl 750 MG in Sodium Chloride 0.9% 250 ML 250 ML IVPB SCH ×2 (08:48→21:00)
[2021-07-16] MEDS: Famotidine/PF 20 mg/2ml Vial SLOW IVP SCH ×2 (08:48→20:43)
[2021-07-16] MEDS: Enoxaparin Sodium 40 MG/0.4 ML SYRINGE SC SCH ×2 (08:48→20:43)
[2021-07-16] MEDS ORDERED: Loperamide HCl 2 MG CAP PO PRN (09:10)
[2021-07-16] MEDS ORDERED: Artificial Tear Sol 15 ML BOT EA EYE PRN (09:10)
[2021-07-16] MEDS ORDERED: Sodium Chloride 0.65% Nasal 44 ML BOT EA NARE PRN (09:10)
[2021-07-16] MEDS ORDERED: Senokot S 8.6-50 MG TAB PO PRN (09:10)
[2021-07-16] MEDS ORDERED: Hydrocerin (Eucerin) Cream 120 gm Jar TOP PRN (09:10)
[2021-07-16] MEDS ORDERED: guaiFENesin 100 MG/5 ML UDCUP PO PRN (09:13)
[2021-07-17] MEDS: Labetalol HCl 100 MG/20 ML VIAL SLOW IVP PRN (03:07)
[2021-07-17 03:20] LABS: #Eosinphils 0.2 10x3/uL (0.0-0.5); #Monocytes 0.4 10x3/uL (0.0-1.1); #Neutrophils 4.3 10x3/uL (1.5-8.4); %Basophils 0.3 % (0.0-2.0); %Eosinophils 2.9 % (0.0-6.0); %Lymphocytes 18.8 % (18.0-47.0); %Neutrophils 70.2 % (40.0-75.0); Hemoglobin 10.6 g/dL (12.0-15.5); Mean Corpuscular HGB CONC 31.7 g/dL (32.0-36.0); Mean Corpuscular Hemoglobin 29.9 pg (27.0-33.0); Mean Corpuscular Volume 94.1 fl (81.6-98.3); Mean Platelet Volume 9.9 fl (7.4-10.4); Platelet Count 270 10x3/uL (150-450); RBC Distribution Width 14.6 % (11.5-14.5); Red Blood Cell (RBC) Count 3.55 10x6/uL (3.90-5.03); White Blood Cell (WBC) Count 6.2 10x3/uL (3.5-10.5)
[2021-07-17 03:30] LABS: ALT (SGPT) 11 U/L (8-55); AST (SGOT) 25 U/L (5-34); Albumin 2.8 g/dL (3.4-4.8); Alkaline Phosphatase 80 U/L (40-110); Anion Gap 11 mmol/L (10-20); BUN (Urea Nitrogen) 14 mg/dL (9.8-20.1); Bilirubin, Total 0.6 mg/dL (0.2-1.2); Calc. Creatinine Clearance 71 mL/min (70-130); Calcium 8.6 mg/dL (7.8-10.44); Carbon Dioxide 28 mmol/L (23-31); Chloride 105 mmol/L (98-107); Globulin 3.2 g/dL (2.4-3.5); Glucose 109 mg/dL (83-110); Potassium 3.2 mmol/L (3.5-5.1); Sodium 141 mmol/L (136-145)
[2021-07-17] MEDS ORDERED: Potassium Bicarbonate/Cit Ac 20 MEQ TAB PER TUBE SCH ×2 (04:15)
[2021-07-17] MEDS ORDERED: Potassium Chloride 20 MEQ TAB PO SCH (08:00)
[2021-07-17] MEDS: Folic Acid 1 MG TAB PO SCH (08:15)
[2021-07-17] MEDS: ALPRAZolam 0.25 MG TAB PO SCH ×2 (08:15→20:46)
[2021-07-17] MEDS: Multivitamin W/ Minerals 1 TAB PO SCH (08:15)
[2021-07-17] MEDS: Ferrous Sulfate 325 MG TAB PO SCH (08:15)
[2021-07-17] MEDS: Amlodipine 10 MG TAB PO SCH (08:15)
[2021-07-17] MEDS: Enoxaparin Sodium 40 MG/0.4 ML SYRINGE SC SCH ×2 (08:15→20:45)
[2021-07-17] MEDS: Famotidine/PF 20 mg/2ml Vial SLOW IVP SCH ×2 (08:16→20:45)
[2021-07-17] MEDS: Metoprolol Tartrate 25 MG TAB PER TUBE SCH ×2 (08:16→20:46)
[2021-07-17] MEDS: Lisinopril 5 MG TAB PO SCH ×2 (08:16→20:46)
[2021-07-17] MEDS ORDERED: VANCOMYCIN 1.25 GM/250 ML BAG 1.25 GM in Premix Bag 1 BAG IVPB SCH (09:00)
[2021-07-17 09:42] LABS: Vancomycin, Trough 15.4 ug/mL
[2021-07-17] MEDS: Vancomycin HCl 750 MG in Sodium Chloride 0.9% 250 ML 250 ML IVPB SCH ×2 (09:58→20:44)
[2021-07-17 12:04] LABS: Potassium 3.5 mmol/L (3.5-5.1)
[2021-07-18] MEDS: Labetalol HCl 100 MG/20 ML VIAL SLOW IVP PRN (00:08)
[2021-07-18 06:37] LABS: ALT (SGPT) 7 U/L (8-55); AST (SGOT) 24 U/L (5-34); Albumin 2.7 g/dL (3.4-4.8); Alkaline Phosphatase 74 U/L (40-110); Anion Gap 13 mmol/L (10-20); BUN (Urea Nitrogen) 15 mg/dL (9.8-20.1); Bilirubin, Total 0.5 mg/dL (0.2-1.2); Calc. Creatinine Clearance 66 mL/min (70-130); Calcium 8.1 mg/dL (7.8-10.44); Carbon Dioxide 27 mmol/L (23-31); Chloride 106 mmol/L (98-107); Globulin 3.1 g/dL (2.4-3.5); Glucose 107 mg/dL (83-110); Potassium 3.5 mmol/L (3.5-5.1); Protein, Total 5.8 g/dL (5.8-8.1); Sodium 142 mmol/L (136-145)
[2021-07-18] MEDS: ALPRAZolam 0.25 MG TAB PO SCH (09:45)
[2021-07-18] MEDS: Enoxaparin Sodium 40 MG/0.4 ML SYRINGE SC SCH ×2 (09:45→20:26)
[2021-07-18] MEDS: Amlodipine 10 MG TAB PO SCH (09:45)
[2021-07-18] MEDS: Lisinopril 5 MG TAB PO SCH ×2 (09:46→20:26)
[2021-07-18] MEDS: Multivitamin W/ Minerals 1 TAB PO SCH (09:46)
[2021-07-18] MEDS: Metoprolol Tartrate 50 MG TAB PER TUBE SCH ×2 (09:47→20:26)
[2021-07-18] MEDS: Vancomycin HCl 750 MG in Sodium Chloride 0.9% 250 ML 250 ML IVPB SCH ×2 (09:48→20:25)
[2021-07-18] MEDS: Famotidine/PF 20 mg/2ml Vial SLOW IVP SCH ×2 (09:50→20:26)
[2021-07-18] MEDS: Ferrous Sulfate 325 MG TAB PO SCH (09:50)
[2021-07-18] MEDS: Folic Acid 1 MG TAB PO SCH (09:51)
[2021-07-18] MEDS ORDERED: ALPRAZolam 0.25 MG TAB PO PRN (13:24)
[2021-07-18] MEDS ORDERED: Potassium Bicarbonate/Cit Ac 20 MEQ TAB PO SCH (14:00)
[2021-07-18 20:22] LABS: Vancomycin, Trough 17.3 ug/mL
[2021-07-18] MEDS ORDERED: Sodium Chloride 0.9% 250 ML 250 ML ONE (20:23)
[2021-07-19 04:22] LABS: ALT (SGPT) 6 U/L (8-55); AST (SGOT) 24 U/L (5-34); Albumin 2.8 g/dL (3.4-4.8); Alkaline Phosphatase 75 U/L (40-110); Anion Gap 11 mmol/L (10-20); BUN (Urea Nitrogen) 16 mg/dL (9.8-20.1); Bilirubin, Total 0.5 mg/dL (0.2-1.2); Calc. Creatinine Clearance 65 mL/min (70-130); Calcium 8.3 mg/dL (7.8-10.44); Carbon Dioxide 28 mmol/L (23-31); Chloride 107 mmol/L (98-107); Globulin 3.2 g/dL (2.4-3.5); Glucose 109 mg/dL (83-110); Phosphorus 3.6 mg/dL (2.3-4.7); Potassium 3.7 mmol/L (3.5-5.1); Sodium 142 mmol/L (136-145)
[2021-07-19] MEDS ORDERED: Magnesium 2 GM/50 ML 2 GM in Premix Bag 1 BAG IVPB SCH (04:45)
[2021-07-19] MEDS: Ferrous Sulfate 325 MG TAB PO SCH (07:41)
[2021-07-19] MEDS: Enoxaparin Sodium 40 MG/0.4 ML SYRINGE SC SCH (08:11)
[2021-07-19] MEDS: Famotidine/PF 20 mg/2ml Vial SLOW IVP SCH ×2 (08:12→20:03)
[2021-07-19] MEDS: Vancomycin HCl 750 MG in Sodium Chloride 0.9% 250 ML 250 ML IVPB SCH ×2 (08:12→20:03)
[2021-07-19] MEDS: Amlodipine 10 MG TAB PO SCH (08:14)
[2021-07-19] MEDS: Metoprolol Tartrate 50 MG TAB PER TUBE SCH ×2 (08:15→20:03)
[2021-07-19] MEDS: Multivitamin W/ Minerals 1 TAB PO SCH (08:15)
[2021-07-19] MEDS: Lisinopril 5 MG TAB PO SCH ×2 (08:16→20:03)
[2021-07-19] MEDS: Folic Acid 1 MG TAB PO SCH (08:16)
[2021-07-19] MEDS: Enoxaparin Sodium 60 MG/0.6 ML SYRINGE SC SCH (20:03)
[2021-07-20 03:50] LABS: ALT (SGPT) 7 U/L (8-55); AST (SGOT) 26 U/L (5-34); Albumin 2.9 g/dL (3.4-4.8); Alkaline Phosphatase 72 U/L (40-110); Anion Gap 12 mmol/L (10-20); BUN (Urea Nitrogen) 16 mg/dL (9.8-20.1); Bilirubin, Total 0.7 mg/dL (0.2-1.2); Calc. Creatinine Clearance 70 mL/min (70-130); Calcium 8.2 mg/dL (7.8-10.44); Carbon Dioxide 27 mmol/L (23-31); Chloride 105 mmol/L (98-107); Globulin 3.3 g/dL (2.4-3.5); Glucose 104 mg/dL (83-110); Magnesium 2.2 mg/dL (1.6-2.6); Potassium 3.4 mmol/L (3.5-5.1); Protein, Total 6.2 g/dL (5.8-8.1); Sodium 141 mmol/L (136-145)
[2021-07-20 04:00] LABS: #Eosinphils 0.2 10x3/uL (0.0-0.5); #Monocytes 0.6 10x3/uL (0.0-1.1); #Neutrophils 5.1 10x3/uL (1.5-8.4); %Basophils 0.3 % (0.0-2.0); %Eosinophils 3.3 % (0.0-6.0); %Monocytes 8.5 % (0.0-10.0); %Neutrophils 69.4 % (40.0-75.0); Hemoglobin 10.6 g/dL (12.0-15.5); Mean Corpuscular HGB CONC 32.7 g/dL (32.0-36.0); Mean Corpuscular Hemoglobin 30.4 pg (27.0-33.0); Mean Corpuscular Volume 92.8 fl (81.6-98.3); Mean Platelet Volume 9.8 fl (7.4-10.4); Platelet Count 310 10x3/uL (150-450); RBC Distribution Width 13.8 % (11.5-14.5); Red Blood Cell (RBC) Count 3.49 10x6/uL (3.90-5.03); White Blood Cell (WBC) Count 7.3 10x3/uL (3.5-10.5)
[2021-07-20] MEDS ORDERED: Potassium Bicarbonate/Cit Ac 20 MEQ TAB PER TUBE SCH (04:00)
[2021-07-20] MEDS ORDERED: Morphine 2 MG/ML VIAL SLOW IVP PRN (04:38)
[2021-07-20 06:18] LABS: Legionella Urinary Ag Negative (Negative); Strep pneumo Urine Ag NEGATIVE (NEGATIVE)
[2021-07-20] MEDS: Ferrous Sulfate 325 MG TAB PO SCH ×2 (09:03→09:08)
[2021-07-20] MEDS: Multivitamin W/ Minerals 1 TAB PO SCH (09:03)
[2021-07-20] MEDS: Lisinopril 5 MG TAB PO SCH ×2 (09:03→20:46)
[2021-07-20] MEDS: Metoprolol Tartrate 50 MG TAB PER TUBE SCH ×3 (09:04→20:46)
[2021-07-20] MEDS: Amlodipine 10 MG TAB PO SCH (09:04)
[2021-07-20] MEDS: Folic Acid 1 MG TAB PO SCH (09:04)
[2021-07-20] MEDS: Famotidine/PF 20 mg/2ml Vial SLOW IVP SCH ×2 (09:05→20:46)
[2021-07-20] MEDS: Vancomycin HCl 750 MG in Sodium Chloride 0.9% 250 ML 250 ML IVPB SCH ×2 (09:05→20:46)
[2021-07-20] MEDS: Enoxaparin Sodium 60 MG/0.6 ML SYRINGE SC SCH ×2 (09:05→20:45)
[2021-07-20] MEDS: Melatonin 3 MG TAB PO SCH (20:50)
[2021-07-20 20:57] LABS: Vancomycin, Trough 16.9 ug/mL
[2021-07-21 04:37] LABS: ALT (SGPT) 8 U/L (8-55); AST (SGOT) 28 U/L (5-34); Albumin 2.8 g/dL (3.4-4.8); Alkaline Phosphatase 69 U/L (40-110); Anion Gap 14 mmol/L (10-20); BUN (Urea Nitrogen) 16 mg/dL (9.8-20.1); Bilirubin, Total 0.6 mg/dL (0.2-1.2); Calc. Creatinine Clearance 70 mL/min (70-130); Calcium 8.1 mg/dL (7.8-10.44); Carbon Dioxide 24 mmol/L (23-31); Chloride 108 mmol/L (98-107); Globulin 2.9 g/dL (2.4-3.5); Glucose 124 mg/dL (83-110); Potassium 3.6 mmol/L (3.5-5.1); Protein, Total 5.7 g/dL (5.8-8.1); Sodium 142 mmol/L (136-145)
[2021-07-21] MEDS: Metoprolol Tartrate 50 MG TAB PER TUBE SCH ×3 (08:15→20:55)
[2021-07-21] MEDS: Lisinopril 5 MG TAB PO SCH ×2 (08:15→20:54)
[2021-07-21] MEDS: Multivitamin W/ Minerals 1 TAB PO SCH (08:15)
[2021-07-21] MEDS: Folic Acid 1 MG TAB PO SCH (08:15)
[2021-07-21] MEDS: Famotidine/PF 20 mg/2ml Vial SLOW IVP SCH ×2 (08:16→20:54)
[2021-07-21] MEDS: Enoxaparin Sodium 60 MG/0.6 ML SYRINGE SC SCH (08:16)
[2021-07-21] MEDS: Amlodipine 10 MG TAB PO SCH (08:18)
[2021-07-21] MEDS: Vancomycin HCl 750 MG in Sodium Chloride 0.9% 250 ML 250 ML IVPB SCH (08:22)
[2021-07-21] MEDS: Melatonin 3 MG TAB PO SCH (20:55)
[2021-07-22 03:50] LABS: ALT (SGPT) 8 U/L (8-55); AST (SGOT) 29 U/L (5-34); Albumin 3.1 g/dL (3.4-4.8); Alkaline Phosphatase 78 U/L (40-110); Anion Gap 14 mmol/L (10-20); BUN (Urea Nitrogen) 17 mg/dL (9.8-20.1); Bilirubin, Total 0.7 mg/dL (0.2-1.2); Calc. Creatinine Clearance 66 mL/min (70-130); Calcium 8.5 mg/dL (7.8-10.44); Carbon Dioxide 26 mmol/L (23-31); Chloride 106 mmol/L (98-107); Globulin 3.4 g/dL (2.4-3.5); Glucose 115 mg/dL (83-110); Potassium 3.5 mmol/L (3.5-5.1); Protein, Total 6.5 g/dL (5.8-8.1); Sodium 142 mmol/L (136-145)
[2021-07-22] MEDS ORDERED: Potassium Bicarbonate/Cit Ac 20 MEQ TAB PER TUBE SCH (04:15)
[2021-07-22] MEDS: Famotidine/PF 20 mg/2ml Vial SLOW IVP SCH ×2 (08:42→22:10)
[2021-07-22] MEDS: Multivitamin W/ Minerals 1 TAB PO SCH (08:43)
[2021-07-22] MEDS: Amlodipine 10 MG TAB PO SCH (08:43)
[2021-07-22] MEDS: Lisinopril 5 MG TAB PO SCH ×2 (08:43→22:09)
[2021-07-22] MEDS: Metoprolol Tartrate 50 MG TAB PER TUBE SCH ×3 (08:43→22:10)
[2021-07-22] MEDS: Folic Acid 1 MG TAB PO SCH (08:44)
[2021-07-22 10:01] LABS: Potassium 4.2 mmol/L (3.5-5.1)
[2021-07-22 13:12] LABS: Hemoglobin 10.2 g/dL (12.0-15.5); Mean Corpuscular Hemoglobin 30.8 pg (27.0-33.0); Mean Corpuscular Volume 93.4 fl (81.6-98.3); Mean Platelet Volume 9.7 fl (7.4-10.4); Platelet Count 318 10x3/uL (150-450); RBC Distribution Width 13.8 % (11.5-14.5); Red Blood Cell (RBC) Count 3.31 10x6/uL (3.90-5.03); White Blood Cell (WBC) Count 8.3 10x3/uL (3.5-10.5)
[2021-07-22 14:07] LABS: MDiff Complete? YES
[2021-07-22 14:11] LABS: Eosinophils 2 % (0-10); Lymphocytes 20 % (21-51); Monocytes 4 % (0-10); Neutrophil 74 % (42-75); Platelet Morphology Comment Appears Adequate
[2021-07-22 14:14] LABS: RBC Morphology Normal
[2021-07-22] MEDS: Melatonin 3 MG TAB PO SCH (22:10)
[2021-07-22] MEDS: Enoxaparin Sodium 60 MG/0.6 ML SYRINGE SC SCH (22:11)
[2021-07-23 04:24] LABS: #Basophils 0.1 10x3/uL (0.0-0.2); #Eosinphils 0.2 10x3/uL (0.0-0.5); #Neutrophils 6.6 10x3/uL (1.5-8.4); %Basophils 0.6 % (0.0-2.0); %Eosinophils 1.8 % (0.0-6.0); %Lymphocytes 25.5 % (18.0-47.0); %Monocytes 9.3 % (0.0-10.0); Hemoglobin 10.2 g/dL (12.0-15.5); Mean Corpuscular HGB CONC 32.3 g/dL (32.0-36.0); Mean Corpuscular Hemoglobin 30.6 pg (27.0-33.0); Mean Corpuscular Volume 94.9 fl (81.6-98.3); Mean Platelet Volume 9.8 fl (7.4-10.4); Platelet Count 375 10x3/uL (150-450); RBC Distribution Width 13.7 % (11.5-14.5); Red Blood Cell (RBC) Count 3.33 10x6/uL (3.90-5.03); White Blood Cell (WBC) Count 10.6 10x3/uL (3.5-10.5)
[2021-07-23 04:40] LABS: ALT (SGPT) 6 U/L (8-55); AST (SGOT) 28 U/L (5-34); Albumin 3.1 g/dL (3.4-4.8); Alkaline Phosphatase 79 U/L (40-110); Anion Gap 15 mmol/L (10-20); BUN (Urea Nitrogen) 17 mg/dL (9.8-20.1); Bilirubin, Total 0.7 mg/dL (0.2-1.2); Calc. Creatinine Clearance 61 mL/min (70-130); Calcium 8.9 mg/dL (7.8-10.44); Carbon Dioxide 26 mmol/L (23-31); Chloride 105 mmol/L (98-107); Globulin 3.5 g/dL (2.4-3.5); Glucose 130 mg/dL (83-110); Potassium 3.7 mmol/L (3.5-5.1); Protein, Total 6.6 g/dL (5.8-8.1); Sodium 142 mmol/L (136-145)
[2021-07-23] MEDS: Multivitamin W/ Minerals 1 TAB PO SCH (08:58)
[2021-07-23] MEDS: Enoxaparin Sodium 60 MG/0.6 ML SYRINGE SC SCH ×2 (08:58→21:30)
[2021-07-23] MEDS: Metoprolol Tartrate 50 MG TAB PER TUBE SCH ×3 (08:58→20:54)
[2021-07-23] MEDS: Famotidine/PF 20 mg/2ml Vial SLOW IVP SCH ×2 (08:58→21:29)
[2021-07-23] MEDS: Folic Acid 1 MG TAB PO SCH (08:58)
[2021-07-23] MEDS: Amlodipine 10 MG TAB PO SCH (08:58)
[2021-07-23] MEDS: Lisinopril 5 MG TAB PO SCH ×2 (08:58→20:55)
[2021-07-23] MEDS: Melatonin 3 MG TAB PO SCH (21:29)
[2021-07-24] MEDS: hydrOXYzine 25 MG TAB PO PRN (03:37)
[2021-07-24 07:33] LABS: #Eosinphils 0.1 10x3/uL (0.0-0.5); #Monocytes 0.8 10x3/uL (0.0-1.1); #Neutrophils 7.2 10x3/uL (1.5-8.4); %Basophils 0.4 % (0.0-2.0); %Eosinophils 0.5 % (0.0-6.0); %Lymphocytes 16.8 % (18.0-47.0); %Monocytes 8.2 % (0.0-10.0); %Neutrophils 73.3 % (40.0-75.0); Hemoglobin 10.1 g/dL (12.0-15.5); Mean Corpuscular HGB CONC 32.9 g/dL (32.0-36.0); Mean Corpuscular Hemoglobin 30.5 pg (27.0-33.0); Mean Corpuscular Volume 92.7 fl (81.6-98.3); Mean Platelet Volume 9.9 fl (7.4-10.4); Platelet Count 317 10x3/uL (150-450); RBC Distribution Width 13.7 % (11.5-14.5); Red Blood Cell (RBC) Count 3.31 10x6/uL (3.90-5.03); White Blood Cell (WBC) Count 9.8 10x3/uL (3.5-10.5)
[2021-07-24 07:57] LABS: ALT (SGPT) 11 U/L (8-55); AST (SGOT) 31 U/L (5-34); Albumin 3.1 g/dL (3.4-4.8); Alkaline Phosphatase 82 U/L (40-110); Anion Gap 16 mmol/L (10-20); BUN (Urea Nitrogen) 20 mg/dL (9.8-20.1); Bilirubin, Total 0.7 mg/dL (0.2-1.2); Calc. Creatinine Clearance 65 mL/min (70-130); Calcium 8.7 mg/dL (7.8-10.44); Carbon Dioxide 25 mmol/L (23-31); Chloride 106 mmol/L (98-107); Globulin 3.4 g/dL (2.4-3.5); Glucose 132 mg/dL (83-110); Potassium 3.7 mmol/L (3.5-5.1); Protein, Total 6.5 g/dL (5.8-8.1); Sodium 143 mmol/L (136-145)
[2021-07-24] MEDS: Enoxaparin Sodium 60 MG/0.6 ML SYRINGE SC SCH ×2 (09:59→21:58)
[2021-07-24] MEDS: Famotidine/PF 20 mg/2ml Vial SLOW IVP SCH ×2 (09:59→22:02)
[2021-07-24] MEDS: Metoprolol Tartrate 50 MG TAB PER TUBE SCH ×3 (10:00→22:01)
[2021-07-24] MEDS: Amlodipine 10 MG TAB PO SCH (10:00)
[2021-07-24] MEDS: Lisinopril 10 MG TAB PO SCH ×2 (10:01→21:59)
[2021-07-24] MEDS: Multivitamin W/ Minerals 1 TAB PO SCH (10:01)
[2021-07-24] MEDS: Folic Acid 1 MG TAB PO SCH (10:01)
[2021-07-24] MEDS ORDERED: Furosemide 20 MG/2 ML VIAL SLOW IVP SCH (15:45)
[2021-07-24] MEDS: Melatonin 3 MG TAB PO SCH (21:58)
[2021-07-25] MEDS ORDERED: Lorazepam 2 MG/ML VIAL SLOW IVP SCH (01:15)
[2021-07-25 05:30] LABS: #Basophils 0.1 10x3/uL (0.0-0.2); #Eosinphils 0.1 10x3/uL (0.0-0.5); #Monocytes 0.7 10x3/uL (0.0-1.1); #Neutrophils 7.1 10x3/uL (1.5-8.4); %Basophils 0.6 % (0.0-2.0); %Eosinophils 0.5 % (0.0-6.0); %Lymphocytes 18.3 % (18.0-47.0); %Monocytes 7.2 % (0.0-10.0); %Neutrophils 72.2 % (40.0-75.0); Hemoglobin 10.6 g/dL (12.0-15.5); Mean Corpuscular HGB CONC 32.5 g/dL (32.0-36.0); Mean Corpuscular Volume 92.4 fl (81.6-98.3); Mean Platelet Volume 9.8 fl (7.4-10.4); Platelet Count 377 10x3/uL (150-450); RBC Distribution Width 14.1 % (11.5-14.5); Red Blood Cell (RBC) Count 3.53 10x6/uL (3.90-5.03); White Blood Cell (WBC) Count 9.8 10x3/uL (3.5-10.5)
[2021-07-25 05:38] LABS: ALT (SGPT) 11 U/L (8-55); AST (SGOT) 28 U/L (5-34); Albumin 3.2 g/dL (3.4-4.8); Alkaline Phosphatase 83 U/L (40-110); Anion Gap 15 mmol/L (10-20); BUN (Urea Nitrogen) 18 mg/dL (9.8-20.1); Bilirubin, Total 0.8 mg/dL (0.2-1.2); Calc. Creatinine Clearance 67 mL/min (70-130); Calcium 8.8 mg/dL (7.8-10.44); Carbon Dioxide 29 mmol/L (23-31); Chloride 104 mmol/L (98-107); Globulin 3.7 g/dL (2.4-3.5); Glucose 111 mg/dL (83-110); Potassium 3.4 mmol/L (3.5-5.1); Protein, Total 6.9 g/dL (5.8-8.1); Sodium 145 mmol/L (136-145)
[2021-07-25] MEDS ORDERED: Potassium Chloride 20 MEQ TAB PO SCH (05:45)
[2021-07-25] MEDS: Metoprolol Tartrate 50 MG TAB PER TUBE SCH ×3 (10:54→22:46)
[2021-07-25] MEDS: Lisinopril 10 MG TAB PO SCH ×2 (10:54→22:42)
[2021-07-25] MEDS: Famotidine/PF 20 mg/2ml Vial SLOW IVP SCH ×2 (10:55→21:44)
[2021-07-25] MEDS: Folic Acid 1 MG TAB PO SCH (10:55)
[2021-07-25] MEDS: Amlodipine 10 MG TAB PO SCH (10:55)
[2021-07-25] MEDS: Multivitamin W/ Minerals 1 TAB PO SCH (10:55)
[2021-07-25] MEDS: Enoxaparin Sodium 60 MG/0.6 ML SYRINGE SC SCH ×2 (10:55→22:41)
[2021-07-25] MEDS ORDERED: Furosemide 40 MG/4 ML VIAL SLOW IVP SCH (19:30)
[2021-07-25] MEDS: Melatonin 3 MG TAB PO SCH (22:42)
[2021-07-26 05:34] LABS: #Basophils 0.1 10x3/uL (0.0-0.2); #Eosinphils 0.1 10x3/uL (0.0-0.5); #Monocytes 0.9 10x3/uL (0.0-1.1); #Neutrophils 6.3 10x3/uL (1.5-8.4); %Basophils 0.6 % (0.0-2.0); %Lymphocytes 19.2 % (18.0-47.0); %Monocytes 9.8 % (0.0-10.0); %Neutrophils 68.2 % (40.0-75.0); Hemoglobin 10.3 g/dL (12.0-15.5); Mean Corpuscular HGB CONC 32.2 g/dL (32.0-36.0); Mean Corpuscular Hemoglobin 30.5 pg (27.0-33.0); Mean Corpuscular Volume 94.7 fl (81.6-98.3); Platelet Count 360 10x3/uL (150-450); RBC Distribution Width 14.1 % (11.5-14.5); Red Blood Cell (RBC) Count 3.38 10x6/uL (3.90-5.03); White Blood Cell (WBC) Count 9.3 10x3/uL (3.5-10.5)
[2021-07-26 05:35] LABS: ALT (SGPT) 11 U/L (8-55); AST (SGOT) 27 U/L (5-34); Albumin 3.1 g/dL (3.4-4.8); Alkaline Phosphatase 80 U/L (40-110); Anion Gap 13 mmol/L (10-20); BUN (Urea Nitrogen) 20 mg/dL (9.8-20.1); Bilirubin, Total 0.6 mg/dL (0.2-1.2); Calc. Creatinine Clearance 66 mL/min (70-130); Calcium 8.6 mg/dL (7.8-10.44); Carbon Dioxide 31 mmol/L (23-31); Chloride 104 mmol/L (98-107); Globulin 3.5 g/dL (2.4-3.5); Glucose 113 mg/dL (83-110); Potassium 3.4 mmol/L (3.5-5.1); Protein, Total 6.6 g/dL (5.8-8.1); Sodium 145 mmol/L (136-145)
[2021-07-26] MEDS ORDERED: Potassium Chloride 20 MEQ TAB PO SCH (05:45)
[2021-07-26] MEDS ORDERED: Piperacillin/Tazobactam 4.5 GM in Sodium Chloride 0.9% 100 ML IVPB SCH (09:00)
[2021-07-26] MEDS ORDERED: Piperacillin/Tazobactam 3.375 GM in Sodium Chloride 0.9% 100 ML IVPB SCH (09:00)
[2021-07-26] MEDS ORDERED: Potassium Bicarbonate/Cit Ac 20 MEQ TAB PER TUBE SCH (09:00)
[2021-07-26] MEDS: Famotidine/PF 20 mg/2ml Vial SLOW IVP SCH ×2 (09:45→21:28)
[2021-07-26] MEDS: Furosemide 40 MG/4 ML VIAL SLOW IVP SCH (09:45)
[2021-07-26] MEDS: Metoprolol Tartrate 50 MG TAB PER TUBE SCH ×3 (09:45→21:33)
[2021-07-26] MEDS: Multivitamin W/ Minerals 1 TAB PO SCH (09:50)
[2021-07-26] MEDS: Amlodipine 10 MG TAB PO SCH (09:50)
[2021-07-26] MEDS: Piperacillin/Tazobactam 3.375 GM VIAL ONE ×2 (10:00→13:10)
[2021-07-26] MEDS: Enoxaparin Sodium 60 MG/0.6 ML SYRINGE SC SCH ×2 (10:06→21:34)
[2021-07-26] MEDS: Lisinopril 10 MG TAB PO SCH ×2 (10:06→21:33)
[2021-07-26] MEDS: Folic Acid 1 MG TAB PO SCH (10:06)
[2021-07-26] MEDS: Piperacillin/Tazobactam 3.375 GM in Sodium Chloride 0.9% 100 ML IVPB SCH ×2 (13:08→21:40)
[2021-07-26] MEDS: Melatonin 3 MG TAB PO SCH (21:33)
[2021-07-27 04:42] LABS: Hemoglobin 9.4 g/dL (12.0-15.5); Mean Corpuscular HGB CONC 31.8 g/dL (32.0-36.0); Mean Corpuscular Hemoglobin 30.1 pg (27.0-33.0); Mean Corpuscular Volume 94.9 fl (81.6-98.3); Mean Platelet Volume 9.5 fl (7.4-10.4); Platelet Count 294 10x3/uL (150-450); RBC Distribution Width 13.8 % (11.5-14.5); Red Blood Cell (RBC) Count 3.12 10x6/uL (3.90-5.03); White Blood Cell (WBC) Count 8.6 10x3/uL (3.5-10.5)
[2021-07-27 04:56] LABS: Anion Gap 13 mmol/L (10-20); BUN (Urea Nitrogen) 23 mg/dL (9.8-20.1); Calc. Creatinine Clearance 64 mL/min (70-130); Calcium 8.4 mg/dL (7.8-10.44); Carbon Dioxide 34 mmol/L (23-31); Chloride 103 mmol/L (98-107); Glucose 131 mg/dL (83-110); Potassium 3.7 mmol/L (3.5-5.1); Sodium 146 mmol/L (136-145)
[2021-07-27] MEDS: Piperacillin/Tazobactam 3.375 GM in Sodium Chloride 0.9% 100 ML IVPB SCH (05:50)
[2021-07-27] MEDS: Furosemide 40 MG/4 ML VIAL SLOW IVP SCH (09:41)
[2021-07-27] MEDS: Cefepime 2 GM in Sodium Chloride 0.9% 100 ML IVPB SCH ×2 (09:41→21:57)
[2021-07-27] MEDS: Enoxaparin Sodium 60 MG/0.6 ML SYRINGE SC SCH ×2 (09:41→21:58)
[2021-07-27] MEDS: Amlodipine 10 MG TAB PO SCH (09:42)
[2021-07-27] MEDS: Folic Acid 1 MG TAB PO SCH (09:42)
[2021-07-27] MEDS: Lisinopril 10 MG TAB PO SCH ×2 (09:43→21:59)
[2021-07-27] MEDS: Famotidine 20 MG TAB PO SCH ×2 (09:43→21:59)
[2021-07-27] MEDS: Metoprolol Tartrate 50 MG TAB PER TUBE SCH ×3 (09:44→21:59)
[2021-07-27] MEDS: Multivitamin W/ Minerals 1 TAB PO SCH (09:48)
[2021-07-27] MEDS ORDERED: guaiFENesin/Codeine Phosphate 100 mg/10 mg 5 ml UD Cup PO PRN (10:54)
[2021-07-27] MEDS ORDERED: Multivits W-Minerals Liquid 15 ML LIQ PER TUBE SCH (12:00)
[2021-07-27] MEDS: metroNIDAZOLE 500 MG in Premix Bag 1 BAG IVPB SCH ×2 (15:24→21:58)
[2021-07-27] MEDS ORDERED: Sodium Chloride 0.9% 100 ML ONE (21:35)
[2021-07-27] MEDS: Melatonin 3 MG TAB PO SCH (21:59)
[2021-07-28] MEDS: hydrOXYzine 25 MG TAB PO PRN (01:12)
[2021-07-28 04:35] LABS: Hemoglobin 10.8 g/dL (12.0-15.5); Mean Corpuscular HGB CONC 32.1 g/dL (32.0-36.0); Mean Corpuscular Hemoglobin 30.4 pg (27.0-33.0); Mean Corpuscular Volume 94.6 fl (81.6-98.3); Mean Platelet Volume 10.6 fl (7.4-10.4); Platelet Count 291 10x3/uL (150-450); RBC Distribution Width 13.6 % (11.5-14.5); Red Blood Cell (RBC) Count 3.55 10x6/uL (3.90-5.03); White Blood Cell (WBC) Count 9.9 10x3/uL (3.5-10.5)
[2021-07-28 04:52] LABS: Anion Gap 15 mmol/L (10-20); BUN (Urea Nitrogen) 22 mg/dL (9.8-20.1); Calc. Creatinine Clearance 66 mL/min (70-130); Calcium 8.8 mg/dL (7.8-10.44); Carbon Dioxide 33 mmol/L (23-31); Chloride 103 mmol/L (98-107); Glucose 145 mg/dL (83-110); Potassium 3.1 mmol/L (3.5-5.1); Sodium 148 mmol/L (136-145)
[2021-07-28] MEDS ORDERED: Potassium Bicarbonate/Cit Ac 20 MEQ TAB PO SCH (05:15)
[2021-07-28] MEDS ORDERED: Haloperidol Lactate 5 MG/ML VIAL IM SCH (05:15)
[2021-07-28] MEDS: Labetalol HCl 100 MG/20 ML VIAL SLOW IVP PRN (05:30)
[2021-07-28] MEDS: metroNIDAZOLE 500 MG in Premix Bag 1 BAG IVPB SCH ×3 (05:36→23:30)
[2021-07-28] MEDS: Cefepime 2 GM in Sodium Chloride 0.9% 100 ML IVPB SCH ×2 (09:54→22:20)
[2021-07-28] MEDS: Amlodipine 10 MG TAB PO SCH (09:54)
[2021-07-28] MEDS: Famotidine 20 MG TAB PO SCH ×2 (09:55→22:18)
[2021-07-28] MEDS: Enoxaparin Sodium 60 MG/0.6 ML SYRINGE SC SCH (09:55)
[2021-07-28] MEDS: Lisinopril 10 MG TAB PO SCH (09:56)
[2021-07-28] MEDS: Furosemide 40 MG/4 ML VIAL SLOW IVP SCH (09:56)
[2021-07-28] MEDS: Folic Acid 1 MG TAB PO SCH (09:56)
[2021-07-28] MEDS: Metoprolol Tartrate 50 MG TAB PER TUBE SCH ×3 (09:58→22:18)
[2021-07-28 11:35] LABS: ALV-art Gradient 199.025 mmHg (0-20); Actual Bicarbonate (HCO3a) 33.6 mEq/L (22-28); Base Excess (BEa) 8.6 mEq/L (-2.0 to +3.0); CO2 Tension 48.5 mmHg (35.0-45.0); Calcium, Ionized (arterial) 1.14 mmol/L (1.12-1.30); Carboxyhemoglobin (COHb) 0.3 gm% (0.0-3.0); Hemoglobin (Hb) 10.8 g/dL (12.0-16.0); O2 Tension (PaO2), arterial 61.2 mmHg (> 60.0); Potassium - ABG Lab 3.4 mmol/L (3.70-5.30); Puncture Site RRA; pH, Arterial 7.46 (7.35-7.45)
[2021-07-28] MEDS: Multivits W-Minerals Liquid 15 ML LIQ PER TUBE SCH (13:35)
[2021-07-28] MEDS ORDERED: Furosemide 40 MG/4 ML VIAL SLOW IVP SCH (17:00)
[2021-07-28] MEDS: Sodium Chloride 0.45% 1,000 ML IV SCH (18:29)
[2021-07-28] MEDS ORDERED: Cefepime 2 GM VIAL ONE (21:01)
[2021-07-28] MEDS ORDERED: Sodium Chloride 0.9% 100 ML ONE (21:01)
[2021-07-28] MEDS: Lisinopril 20 MG TAB PO SCH (22:17)
[2021-07-28] MEDS: Melatonin 3 MG TAB PO SCH (22:18)
[2021-07-29] MEDS ORDERED: Haloperidol Lactate 5 MG/ML VIAL IM SCH (00:30)
[2021-07-29] MEDS: Famotidine 20 MG TAB PO SCH ×3 (00:31→21:46)
[2021-07-29] MEDS: Melatonin 3 MG TAB PO SCH ×2 (00:31→21:46)
[2021-07-29] MEDS: Lisinopril 20 MG TAB PO SCH ×3 (00:31→21:44)
[2021-07-29] MEDS: Metoprolol Tartrate 50 MG TAB PER TUBE SCH ×4 (00:32→21:45)
[2021-07-29] MEDS: Labetalol HCl 100 MG/20 ML VIAL SLOW IVP PRN ×3 (01:08→12:15)
[2021-07-29 05:16] LABS: #Basophils 0.1 10x3/uL (0.0-0.2); #Monocytes 0.6 10x3/uL (0.0-1.1); #Neutrophils 8.2 10x3/uL (1.5-8.4); %Basophils 0.8 % (0.0-2.0); %Eosinophils 0.1 % (0.0-6.0); %Lymphocytes 11.7 % (18.0-47.0); %Monocytes 5.7 % (0.0-10.0); %Neutrophils 80.3 % (40.0-75.0); Hemoglobin 10.9 g/dL (12.0-15.5); Mean Corpuscular HGB CONC 32.4 g/dL (32.0-36.0); Mean Corpuscular Hemoglobin 29.9 pg (27.0-33.0); Mean Corpuscular Volume 92.3 fl (81.6-98.3); Mean Platelet Volume 9.9 fl (7.4-10.4); Platelet Count 362 10x3/uL (150-450); RBC Distribution Width 14.3 % (11.5-14.5); Red Blood Cell (RBC) Count 3.64 10x6/uL (3.90-5.03); White Blood Cell (WBC) Count 10.2 10x3/uL (3.5-10.5)
[2021-07-29 05:30] LABS: Anion Gap 17 mmol/L (10-20); BUN (Urea Nitrogen) 23 mg/dL (9.8-20.1); Calc. Creatinine Clearance 66 mL/min (70-130); Calcium 8.7 mg/dL (7.8-10.44); Carbon Dioxide 30 mmol/L (23-31); Chloride 104 mmol/L (98-107); Glucose 119 mg/dL (83-110); Sodium 147 mmol/L (136-145)
[2021-07-29 05:32] LABS: Potassium 3.8 mmol/L (3.5-5.1)
[2021-07-29] MEDS: metroNIDAZOLE 500 MG in Premix Bag 1 BAG IVPB SCH ×2 (06:43→13:21)
[2021-07-29] MEDS: Cefepime 2 GM in Sodium Chloride 0.9% 100 ML IVPB SCH ×2 (08:28→21:43)
[2021-07-29] MEDS ORDERED: PROPOFOL 20 ML ONE (10:00)
[2021-07-29] MEDS: Amlodipine 10 MG TAB PO SCH (11:29)
[2021-07-29] MEDS: Folic Acid 1 MG TAB PO SCH (11:30)
[2021-07-29] MEDS: Multivits W-Minerals Liquid 15 ML LIQ PER TUBE SCH (11:31)
[2021-07-29] MEDS: Furosemide 40 MG/4 ML VIAL SLOW IVP SCH (11:59)
[2021-07-29] MEDS: Sodium Chloride 0.45% 1,000 ML IV SCH (12:27)
[2021-07-29] MEDS: hydrALAZINE 20 MG/ML VIAL SLOW IVP PRN (18:05)
[2021-07-29] MEDS: Enoxaparin Sodium 60 MG/0.6 ML SYRINGE SC SCH (21:44)
[2021-07-30] MEDS: metroNIDAZOLE 500 MG in Premix Bag 1 BAG IVPB SCH ×4 (04:12→22:56)
[2021-07-30 05:35] LABS: #Basophils 0.1 10x3/uL (0.0-0.2); #Monocytes 0.8 10x3/uL (0.0-1.1); #Neutrophils 8.3 10x3/uL (1.5-8.4); %Basophils 0.5 % (0.0-2.0); %Lymphocytes 14.6 % (18.0-47.0); %Monocytes 6.9 % (0.0-10.0); %Neutrophils 76.2 % (40.0-75.0); Hemoglobin 10.2 g/dL (12.0-15.5); Mean Corpuscular HGB CONC 32.3 g/dL (32.0-36.0); Mean Corpuscular Hemoglobin 29.8 pg (27.0-33.0); Mean Corpuscular Volume 92.4 fl (81.6-98.3); Mean Platelet Volume 9.8 fl (7.4-10.4); Platelet Count 347 10x3/uL (150-450); RBC Distribution Width 14.5 % (11.5-14.5); Red Blood Cell (RBC) Count 3.42 10x6/uL (3.90-5.03); White Blood Cell (WBC) Count 10.9 10x3/uL (3.5-10.5)
[2021-07-30 05:41] LABS: Anion Gap 16 mmol/L (10-20); BUN (Urea Nitrogen) 28 mg/dL (9.8-20.1); Calc. Creatinine Clearance 65 mL/min (70-130); Calcium 8.7 mg/dL (7.8-10.44); Carbon Dioxide 33 mmol/L (23-31); Chloride 105 mmol/L (98-107); Glucose 128 mg/dL (83-110); Sodium 151 mmol/L (136-145)
[2021-07-30 05:50] LABS: Potassium 2.6 mmol/L (3.5-5.1)
[2021-07-30] MEDS: Potassium Chloride 20 MEQ in Premix Bag 1 BAG IVPB SCH ×4 (06:13→13:17)
[2021-07-30] MEDS ORDERED: Cefepime 2 GM VIAL ONE (07:27)
[2021-07-30] MEDS ORDERED: NIFEdipine XL 90 MG TAB PO SCH (09:00)
[2021-07-30] MEDS: Cefepime 2 GM in Sodium Chloride 0.9% 100 ML IVPB SCH ×2 (10:02→21:14)
[2021-07-30] MEDS: Enoxaparin Sodium 60 MG/0.6 ML SYRINGE SC SCH (10:06)
[2021-07-30] MEDS: Metoprolol Tartrate 50 MG TAB PER TUBE SCH ×3 (10:07→21:15)
[2021-07-30] MEDS: Famotidine 20 MG TAB PO SCH ×2 (10:07→21:16)
[2021-07-30] MEDS: Lisinopril 20 MG TAB PO SCH ×2 (10:07→21:16)
[2021-07-30] MEDS: Folic Acid 1 MG TAB PO SCH (10:07)
[2021-07-30] MEDS: Multivits W-Minerals Liquid 15 ML LIQ PER TUBE SCH (10:08)
[2021-07-30] MEDS: Furosemide 40 MG/4 ML VIAL SLOW IVP SCH (10:08)
[2021-07-30] MEDS ORDERED: hydrALAZINE 25 MG TAB PER TUBE SCH ×2 (12:00→15:00)
[2021-07-30] MEDS ORDERED: Amlodipine 10 MG TAB PER TUBE SCH (12:00)
[2021-07-30] MEDS: HumaLOG 300 UNITS/3 ML VIAL SC PRN (13:19)
[2021-07-30 15:36] LABS: Anion Gap 15 mmol/L (10-20); BUN (Urea Nitrogen) 34 mg/dL (9.8-20.1); Calc. Creatinine Clearance 52 mL/min (70-130); Calcium 8.8 mg/dL (7.8-10.44); Carbon Dioxide 32 mmol/L (23-31); Chloride 106 mmol/L (98-107); Glucose 90 mg/dL (83-110); Potassium 3.5 mmol/L (3.5-5.1); Sodium 149 mmol/L (136-145)
[2021-07-30] MEDS ORDERED: Apixaban 5 MG TAB PO SCH (21:00)
[2021-07-30] MEDS: Apixaban 5 MG TAB PER TUBE SCH (21:15)
[2021-07-30] MEDS: Melatonin 3 MG TAB PO SCH (21:15)
[2021-07-31 05:00] LABS: #Basophils 0.1 10x3/uL (0.0-0.2); #Eosinphils 0.1 10x3/uL (0.0-0.5); #Monocytes 0.9 10x3/uL (0.0-1.1); #Neutrophils 6.3 10x3/uL (1.5-8.4); %Basophils 0.6 % (0.0-2.0); %Eosinophils 0.6 % (0.0-6.0); %Monocytes 9.3 % (0.0-10.0); %Neutrophils 66.4 % (40.0-75.0); Hemoglobin 9.5 g/dL (12.0-15.5); Mean Corpuscular HGB CONC 31.8 g/dL (32.0-36.0); Mean Corpuscular Hemoglobin 29.8 pg (27.0-33.0); Mean Corpuscular Volume 93.7 fl (81.6-98.3); Mean Platelet Volume 10.2 fl (7.4-10.4); Platelet Count 308 10x3/uL (150-450); RBC Distribution Width 14.8 % (11.5-14.5); Red Blood Cell (RBC) Count 3.19 10x6/uL (3.90-5.03); White Blood Cell (WBC) Count 9.6 10x3/uL (3.5-10.5)
[2021-07-31] MEDS: metroNIDAZOLE 500 MG in Premix Bag 1 BAG IVPB SCH ×3 (05:00→22:48)
[2021-07-31 05:01] LABS: Anion Gap 14 mmol/L (10-20); BUN (Urea Nitrogen) 38 mg/dL (9.8-20.1); Calc. Creatinine Clearance 55 mL/min (70-130); Calcium 8.7 mg/dL (7.8-10.44); Carbon Dioxide 31 mmol/L (23-31); Chloride 107 mmol/L (98-107); Glucose 126 mg/dL (83-110); Magnesium 2.1 mg/dL (1.6-2.6); Potassium 3.3 mmol/L (3.5-5.1); Sodium 149 mmol/L (136-145)
[2021-07-31] MEDS ORDERED: Potassium Bicarbonate/Cit Ac 20 MEQ TAB PO SCH (05:45)
[2021-07-31] MEDS: Apixaban 5 MG TAB PER TUBE SCH ×2 (08:46→22:08)
[2021-07-31] MEDS: Famotidine 20 MG TAB PO SCH ×2 (08:46→22:09)
[2021-07-31] MEDS: Cefepime 2 GM in Sodium Chloride 0.9% 100 ML IVPB SCH ×2 (08:46→22:10)
[2021-07-31] MEDS: Amlodipine 10 MG TAB PER TUBE SCH (08:46)
[2021-07-31] MEDS: Folic Acid 1 MG TAB PO SCH (08:46)
[2021-07-31] MEDS: Metoprolol Tartrate 50 MG TAB PER TUBE SCH ×3 (08:51→22:08)
[2021-07-31] MEDS: Furosemide 40 MG TAB PER TUBE SCH (08:51)
[2021-07-31] MEDS: Multivits W-Minerals Liquid 15 ML LIQ PER TUBE SCH (08:52)
[2021-07-31] MEDS ORDERED: Amlodipine 10 MG TAB PER TUBE SCH (09:00)
[2021-07-31] MEDS: Lisinopril 20 MG TAB PO SCH ×2 (10:06→22:09)
[2021-07-31 10:12] LABS: Potassium 3.8 mmol/L (3.5-5.1)
[2021-07-31 16:35] LABS: #Basophils 0.1 10x3/uL (0.0-0.2); #Eosinphils 0.1 10x3/uL (0.0-0.5); #Monocytes 0.8 10x3/uL (0.0-1.1); #Neutrophils 6.8 10x3/uL (1.5-8.4); %Basophils 0.7 % (0.0-2.0); %Eosinophils 0.9 % (0.0-6.0); %Lymphocytes 17.8 % (18.0-47.0); %Monocytes 8.6 % (0.0-10.0); %Neutrophils 69.5 % (40.0-75.0); Hemoglobin 9.9 g/dL (12.0-15.5); Mean Corpuscular HGB CONC 31.6 g/dL (32.0-36.0); Mean Corpuscular Hemoglobin 29.6 pg (27.0-33.0); Mean Corpuscular Volume 93.7 fl (81.6-98.3); Mean Platelet Volume 9.8 fl (7.4-10.4); Platelet Count 305 10x3/uL (150-450); Red Blood Cell (RBC) Count 3.34 10x6/uL (3.90-5.03); White Blood Cell (WBC) Count 9.8 10x3/uL (3.5-10.5)
[2021-07-31 16:47] LABS: Anion Gap 12 mmol/L (10-20); BUN (Urea Nitrogen) 35 mg/dL (9.8-20.1); Calc. Creatinine Clearance 59 mL/min (70-130); Calcium 8.6 mg/dL (7.8-10.44); Carbon Dioxide 34 mmol/L (23-31); Chloride 104 mmol/L (98-107); Glucose 133 mg/dL (83-110); Potassium 3.6 mmol/L (3.5-5.1); Sodium 146 mmol/L (136-145)
[2021-07-31 17:54] LABS: Actual Bicarbonate (HCO3a) 29.8 mEq/L (22-28); Base Excess (BEa) 6.4 mEq/L (-2.0 to +3.0); CO2 Tension 38.3 mmHg (35.0-45.0); Calcium, Ionized (arterial) 1.09 mmol/L (1.12-1.30); Carboxyhemoglobin (COHb) 0.3 gm% (0.0-3.0); Hemoglobin (Hb) 10.7 g/dL (12.0-16.0); O2 Tension (PaO2), arterial 158.1 mmHg (> 60.0); Potassium - ABG Lab 3.4 mmol/L (3.70-5.30); Puncture Site RRA; pH, Arterial 7.51 (7.35-7.45)
[2021-07-31 17:56] LABS: ALV-art Gradient 79.225 mmHg (0-20)
[2021-07-31] MEDS: Melatonin 3 MG TAB PO SCH (22:07)
[2021-08-01 05:01] LABS: #Basophils 0.1 10x3/uL (0.0-0.2); #Eosinphils 0.1 10x3/uL (0.0-0.5); #Monocytes 0.7 10x3/uL (0.0-1.1); #Neutrophils 6.3 10x3/uL (1.5-8.4); %Basophils 0.7 % (0.0-2.0); %Eosinophils 0.7 % (0.0-6.0); %Lymphocytes 18.6 % (18.0-47.0); %Neutrophils 69.7 % (40.0-75.0); Hemoglobin 9.5 g/dL (12.0-15.5); Mean Corpuscular HGB CONC 31.6 g/dL (32.0-36.0); Platelet Count 265 10x3/uL (150-450); RBC Distribution Width 14.8 % (11.5-14.5); Red Blood Cell (RBC) Count 3.17 10x6/uL (3.90-5.03)
[2021-08-01 05:03] LABS: Anion Gap 13 mmol/L (10-20); BUN (Urea Nitrogen) 32 mg/dL (9.8-20.1); Calc. Creatinine Clearance 66 mL/min (70-130); Calcium 8.6 mg/dL (7.8-10.44); Carbon Dioxide 32 mmol/L (23-31); Chloride 108 mmol/L (98-107); Glucose 126 mg/dL (83-110); Potassium 3.4 mmol/L (3.5-5.1); Sodium 150 mmol/L (136-145)
[2021-08-01] MEDS: metroNIDAZOLE 500 MG in Premix Bag 1 BAG IVPB SCH ×3 (06:15→22:40)
[2021-08-01] MEDS: Cefepime 2 GM in Sodium Chloride 0.9% 100 ML IVPB SCH ×2 (09:13→21:11)
[2021-08-01] MEDS: Famotidine 20 MG TAB PO SCH ×2 (09:14→21:11)
[2021-08-01] MEDS: Folic Acid 1 MG TAB PO SCH (09:14)
[2021-08-01] MEDS: Apixaban 5 MG TAB PER TUBE SCH ×2 (09:14→21:10)
[2021-08-01] MEDS: Amlodipine 10 MG TAB PER TUBE SCH (09:14)
[2021-08-01] MEDS: Lisinopril 20 MG TAB PO SCH ×2 (09:14→21:11)
[2021-08-01] MEDS: Metoprolol Tartrate 50 MG TAB PER TUBE SCH ×3 (09:14→21:10)
[2021-08-01] MEDS: Furosemide 40 MG TAB PER TUBE SCH (09:14)
[2021-08-01] MEDS: Multivits W-Minerals Liquid 15 ML LIQ PER TUBE SCH (09:15)
[2021-08-01] MEDS: Scopolamine 1.5 mg/72 hour Patch TD SCH (09:40)
[2021-08-01] MEDS: HumaLOG 300 UNITS/3 ML VIAL SC PRN ×2 (10:09→22:06)
[2021-08-01] MEDS ORDERED: Potassium Bicarbonate/Cit Ac 20 MEQ TAB PO SCH (13:00)
[2021-08-01 14:16] LABS: Anion Gap 12 mmol/L (10-20); BUN (Urea Nitrogen) 32 mg/dL (9.8-20.1); Calc. Creatinine Clearance 62 mL/min (70-130); Calcium 8.6 mg/dL (7.8-10.44); Carbon Dioxide 35 mmol/L (23-31); Chloride 106 mmol/L (98-107); Glucose 131 mg/dL (83-110); Potassium 3.2 mmol/L (3.5-5.1); Sodium 150 mmol/L (136-145)
[2021-08-01 18:16] LABS: Potassium 3.9 mmol/L (3.5-5.1)
[2021-08-01] MEDS: Melatonin 3 MG TAB PO SCH (21:10)
[2021-08-02 04:30] LABS: Anion Gap 12 mmol/L (10-20); BUN (Urea Nitrogen) 34 mg/dL (9.8-20.1); Calc. Creatinine Clearance 64 mL/min (70-130); Calcium 8.4 mg/dL (7.8-10.44); Carbon Dioxide 34 mmol/L (23-31); Chloride 107 mmol/L (98-107); Glucose 150 mg/dL (83-110); Potassium 3.7 mmol/L (3.5-5.1); Sodium 149 mmol/L (136-145)
[2021-08-02 04:31] LABS: #Monocytes 0.5 10x3/uL (0.0-1.1); #Neutrophils 9.5 10x3/uL (1.5-8.4); %Basophils 0.4 % (0.0-2.0); %Eosinophils 0.4 % (0.0-6.0); %Lymphocytes 9.9 % (18.0-47.0); %Monocytes 4.2 % (0.0-10.0); %Neutrophils 83.3 % (40.0-75.0); Hemoglobin 9.3 g/dL (12.0-15.5); Mean Corpuscular HGB CONC 31.7 g/dL (32.0-36.0); Mean Corpuscular Hemoglobin 30.5 pg (27.0-33.0); Mean Corpuscular Volume 96.1 fl (81.6-98.3); Mean Platelet Volume 9.9 fl (7.4-10.4); Phosphorus 3.5 mg/dL (2.3-4.7); Platelet Count 243 10x3/uL (150-450); RBC Distribution Width 14.8 % (11.5-14.5); Red Blood Cell (RBC) Count 3.05 10x6/uL (3.90-5.03); White Blood Cell (WBC) Count 11.4 10x3/uL (3.5-10.5)
[2021-08-02] MEDS: metroNIDAZOLE 500 MG in Premix Bag 1 BAG IVPB SCH ×3 (06:17→22:43)
[2021-08-02] MEDS: Cefepime 2 GM in Sodium Chloride 0.9% 100 ML IVPB SCH (08:44)
[2021-08-02] MEDS: Multivits W-Minerals Liquid 15 ML LIQ PER TUBE SCH (08:45)
[2021-08-02] MEDS: Famotidine 20 MG TAB PO SCH ×2 (08:45→21:12)
[2021-08-02] MEDS: Lisinopril 20 MG TAB PO SCH ×2 (08:46→21:11)
[2021-08-02] MEDS: Amlodipine 10 MG TAB PER TUBE SCH (08:46)
[2021-08-02] MEDS: Metoprolol Tartrate 50 MG TAB PER TUBE SCH ×3 (08:46→21:12)
[2021-08-02] MEDS: Furosemide 40 MG TAB PER TUBE SCH (08:46)
[2021-08-02] MEDS: Apixaban 5 MG TAB PER TUBE SCH ×2 (08:46→21:12)
[2021-08-02] MEDS: Folic Acid 1 MG TAB PO SCH (08:46)
[2021-08-02] MEDS: HumaLOG 300 UNITS/3 ML VIAL SC PRN (13:18)
[2021-08-02] MEDS: cefTRIAXone\\ROCEPHIN 1 GM in Sodium Chloride 0.9% 100 ML IVPB SCH (21:11)
[2021-08-02] MEDS: Melatonin 3 MG TAB PO SCH (21:11)
[2021-08-02] MEDS: hydrALAZINE 20 MG/ML VIAL SLOW IVP PRN (22:43)
[2021-08-03] MEDS: hydrOXYzine 25 MG TAB PO PRN (02:24)
[2021-08-03] MEDS: metroNIDAZOLE 500 MG in Premix Bag 1 BAG IVPB SCH ×3 (05:40→22:19)
[2021-08-03] MEDS: hydrALAZINE 20 MG/ML VIAL SLOW IVP PRN (06:08)
[2021-08-03 08:45] LABS: #Monocytes 0.6 10x3/uL (0.0-1.1); #Neutrophils 9.3 10x3/uL (1.5-8.4); %Basophils 0.3 % (0.0-2.0); %Eosinophils 0.1 % (0.0-6.0); %Lymphocytes 12.2 % (18.0-47.0); %Monocytes 4.7 % (0.0-10.0); Hemoglobin 9.9 g/dL (12.0-15.5); Mean Corpuscular HGB CONC 31.1 g/dL (32.0-36.0); Mean Corpuscular Hemoglobin 30.2 pg (27.0-33.0); Mean Platelet Volume 10.2 fl (7.4-10.4); Platelet Count 253 10x3/uL (150-450); RBC Distribution Width 14.9 % (11.5-14.5); Red Blood Cell (RBC) Count 3.28 10x6/uL (3.90-5.03); White Blood Cell (WBC) Count 11.8 10x3/uL (3.5-10.5)
[2021-08-03 09:06] LABS: Anion Gap 16 mmol/L (10-20); BUN (Urea Nitrogen) 33 mg/dL (9.8-20.1); Calc. Creatinine Clearance 71 mL/min (70-130); Calcium 8.7 mg/dL (7.8-10.44); Carbon Dioxide 32 mmol/L (23-31); Chloride 107 mmol/L (98-107); Glucose 134 mg/dL (83-110); Potassium 3.6 mmol/L (3.5-5.1); Sodium 151 mmol/L (136-145)
[2021-08-03] MEDS: Apixaban 5 MG TAB PER TUBE SCH ×2 (09:21→21:35)
[2021-08-03] MEDS: Multivits W-Minerals Liquid 15 ML LIQ PER TUBE SCH (09:21)
[2021-08-03] MEDS: Lisinopril 20 MG TAB PO SCH ×2 (09:22→21:34)
[2021-08-03] MEDS: Famotidine 20 MG TAB PO SCH ×2 (09:23→21:35)
[2021-08-03] MEDS: Amlodipine 10 MG TAB PER TUBE SCH (09:23)
[2021-08-03] MEDS: Metoprolol Tartrate 50 MG TAB PER TUBE SCH ×3 (09:29→21:35)
[2021-08-03] MEDS: Folic Acid 1 MG TAB PO SCH (09:29)
[2021-08-03] MEDS: HumaLOG 300 UNITS/3 ML VIAL SC PRN (12:15)
[2021-08-03] MEDS: Melatonin 3 MG TAB PO SCH (21:33)
[2021-08-03] MEDS: cefTRIAXone\\ROCEPHIN 1 GM in Sodium Chloride 0.9% 100 ML IVPB SCH (21:34)
[2021-08-04 04:31] LABS: #Basophils 0.1 10x3/uL (0.0-0.2); #Monocytes 0.6 10x3/uL (0.0-1.1); #Neutrophils 9.8 10x3/uL (1.5-8.4); %Basophils 0.4 % (0.0-2.0); %Eosinophils 0.3 % (0.0-6.0); %Lymphocytes 9.8 % (18.0-47.0); %Monocytes 5.1 % (0.0-10.0); %Neutrophils 82.4 % (40.0-75.0); Anion Gap 13 mmol/L (10-20); BUN (Urea Nitrogen) 38 mg/dL (9.8-20.1); Calc. Creatinine Clearance 70 mL/min (70-130); Calcium 8.7 mg/dL (7.8-10.44); Carbon Dioxide 33 mmol/L (23-31); Chloride 106 mmol/L (98-107); Glucose 112 mg/dL (83-110); Hemoglobin 9.6 g/dL (12.0-15.5); Mean Corpuscular HGB CONC 31.4 g/dL (32.0-36.0); Mean Corpuscular Volume 95.6 fl (81.6-98.3); Mean Platelet Volume 10.2 fl (7.4-10.4); Platelet Count 250 10x3/uL (150-450); Potassium 3.9 mmol/L (3.5-5.1); RBC Distribution Width 15.3 % (11.5-14.5); Sodium 148 mmol/L (136-145); White Blood Cell (WBC) Count 11.9 10x3/uL (3.5-10.5)
[2021-08-04 05:08] VITALS: BMI 30.4
[2021-08-04] MEDS: metroNIDAZOLE 500 MG in Premix Bag 1 BAG IVPB SCH ×3 (05:52→21:12)
[2021-08-04] MEDS: Metoprolol Tartrate 50 MG TAB PER TUBE SCH ×3 (10:47→21:11)
[2021-08-04] MEDS: Famotidine 20 MG TAB PO SCH ×2 (10:47→21:12)
[2021-08-04] MEDS: Apixaban 5 MG TAB PER TUBE SCH ×2 (10:48→21:10)
[2021-08-04] MEDS: Lisinopril 20 MG TAB PO SCH ×2 (10:48→21:11)
[2021-08-04] MEDS: Folic Acid 1 MG TAB PO SCH (10:48)
[2021-08-04] MEDS: Amlodipine 10 MG TAB PER TUBE SCH (10:48)
[2021-08-04] MEDS: Multivits W-Minerals Liquid 15 ML LIQ PER TUBE SCH (10:49)
[2021-08-04] MEDS: Scopolamine 1.5 mg/72 hour Patch TD SCH (14:29)
[2021-08-04] MEDS: Melatonin 3 MG TAB PO SCH (21:12)
[2021-08-05] MEDS: metroNIDAZOLE 500 MG in Premix Bag 1 BAG IVPB SCH ×3 (05:40→22:01)
[2021-08-05 06:38] LABS: #Monocytes 0.6 10x3/uL (0.0-1.1); #Neutrophils 8.7 10x3/uL (1.5-8.4); %Basophils 0.3 % (0.0-2.0); %Eosinophils 0.2 % (0.0-6.0); %Lymphocytes 12.7 % (18.0-47.0); %Monocytes 5.2 % (0.0-10.0); %Neutrophils 79.7 % (40.0-75.0); Hemoglobin 9.7 g/dL (12.0-15.5); Mean Corpuscular HGB CONC 31.4 g/dL (32.0-36.0); Mean Corpuscular Hemoglobin 30.6 pg (27.0-33.0); Mean Corpuscular Volume 97.5 fl (81.6-98.3); Mean Platelet Volume 10.1 fl (7.4-10.4); Platelet Count 239 10x3/uL (150-450); RBC Distribution Width 15.5 % (11.5-14.5); Red Blood Cell (RBC) Count 3.17 10x6/uL (3.90-5.03)
[2021-08-05 06:48] LABS: Anion Gap 13 mmol/L (10-20); BUN (Urea Nitrogen) 36 mg/dL (9.8-20.1); Calc. Creatinine Clearance 67 mL/min (70-130); Calcium 8.8 mg/dL (7.8-10.44); Carbon Dioxide 35 mmol/L (23-31); Chloride 107 mmol/L (98-107); Glucose 128 mg/dL (83-110); Potassium 3.7 mmol/L (3.5-5.1); Sodium 151 mmol/L (136-145)
[2021-08-05] MEDS ORDERED: Dextrose 5% in Water 1,000 ML IV SCH (08:15)
[2021-08-05] MEDS: Metoprolol Tartrate 50 MG TAB PER TUBE SCH ×3 (09:04→20:02)
[2021-08-05] MEDS: Apixaban 5 MG TAB PER TUBE SCH ×2 (09:04→20:01)
[2021-08-05] MEDS: Famotidine 20 MG TAB PO SCH ×2 (09:04→20:01)
[2021-08-05] MEDS: Amlodipine 10 MG TAB PER TUBE SCH (09:04)
[2021-08-05] MEDS: Folic Acid 1 MG TAB PO SCH (09:04)
[2021-08-05] MEDS: Multivits W-Minerals Liquid 15 ML LIQ PER TUBE SCH (09:05)
[2021-08-05] MEDS: Lisinopril 20 MG TAB PO SCH ×2 (09:05→20:01)
[2021-08-05] MEDS ORDERED: Dextrose 5% in Water 1,000 ML ONE (09:24)
[2021-08-05] MEDS: Melatonin 3 MG TAB PO SCH (20:02)
[2021-08-06 05:30] LABS: Anion Gap 15 mmol/L (10-20); BUN (Urea Nitrogen) 35 mg/dL (9.8-20.1); Calc. Creatinine Clearance 69 mL/min (70-130); Calcium 8.6 mg/dL (7.8-10.44); Carbon Dioxide 31 mmol/L (23-31); Chloride 105 mmol/L (98-107); Glucose 104 mg/dL (83-110); Potassium 3.9 mmol/L (3.5-5.1); Sodium 147 mmol/L (136-145)
[2021-08-06 05:38] LABS: #Eosinphils 0.1 10x3/uL (0.0-0.5); #Monocytes 0.6 10x3/uL (0.0-1.1); #Neutrophils 7.7 10x3/uL (1.5-8.4); %Basophils 0.4 % (0.0-2.0); %Eosinophils 0.5 % (0.0-6.0); %Lymphocytes 14.5 % (18.0-47.0); %Monocytes 5.9 % (0.0-10.0); %Neutrophils 77.2 % (40.0-75.0); Hemoglobin 9.7 g/dL (12.0-15.5); Mean Corpuscular HGB CONC 31.4 g/dL (32.0-36.0); Mean Corpuscular Hemoglobin 30.7 pg (27.0-33.0); Mean Corpuscular Volume 97.8 fl (81.6-98.3); Mean Platelet Volume 10.7 fl (7.4-10.4); Platelet Count 234 10x3/uL (150-450); RBC Distribution Width 15.6 % (11.5-14.5); Red Blood Cell (RBC) Count 3.16 10x6/uL (3.90-5.03)
[2021-08-06] MEDS: metroNIDAZOLE 500 MG in Premix Bag 1 BAG IVPB SCH ×3 (05:51→21:00)
[2021-08-06] MEDS: Multivits W-Minerals Liquid 15 ML LIQ PER TUBE SCH (09:03)
[2021-08-06] MEDS: Apixaban 5 MG TAB PER TUBE SCH ×2 (09:05→20:59)
[2021-08-06] MEDS: Famotidine 20 MG TAB PO SCH ×2 (09:05→21:00)
[2021-08-06] MEDS: Metoprolol Tartrate 50 MG TAB PER TUBE SCH ×3 (09:06→21:00)
[2021-08-06] MEDS: Amlodipine 10 MG TAB PER TUBE SCH (09:06)
[2021-08-06] MEDS: Lisinopril 20 MG TAB PO SCH ×2 (09:07→21:05)
[2021-08-06] MEDS: Folic Acid 1 MG TAB PO SCH (09:07)
[2021-08-06] MEDS ORDERED: Amlodipine 5 MG TAB PO SCH (21:00)
[2021-08-06] MEDS: Melatonin 3 MG TAB PO SCH (21:00)
[2021-08-07 05:25] LABS: #Monocytes 0.6 10x3/uL (0.0-1.1); #Neutrophils 7.8 10x3/uL (1.5-8.4); %Basophils 0.2 % (0.0-2.0); %Eosinophils 0.3 % (0.0-6.0); %Lymphocytes 11.4 % (18.0-47.0); %Monocytes 6.5 % (0.0-10.0); %Neutrophils 80.4 % (40.0-75.0); Mean Corpuscular HGB CONC 31.6 g/dL (32.0-36.0); Mean Corpuscular Hemoglobin 30.7 pg (27.0-33.0); Mean Corpuscular Volume 97.3 fl (81.6-98.3); Mean Platelet Volume 10.6 fl (7.4-10.4); Platelet Count 214 10x3/uL (150-450); RBC Distribution Width 15.8 % (11.5-14.5); Red Blood Cell (RBC) Count 2.93 10x6/uL (3.90-5.03); White Blood Cell (WBC) Count 9.7 10x3/uL (3.5-10.5)
[2021-08-07 05:50] LABS: Anion Gap 10 mmol/L (10-20); BUN (Urea Nitrogen) 29 mg/dL (9.8-20.1); Calc. Creatinine Clearance 76 mL/min (70-130); Calcium 8.2 mg/dL (7.8-10.44); Carbon Dioxide 34 mmol/L (23-31); Chloride 107 mmol/L (98-107); Glucose 90 mg/dL (83-110); Potassium 3.5 mmol/L (3.5-5.1); Sodium 147 mmol/L (136-145)
[2021-08-07] MEDS: Metoprolol Tartrate 50 MG TAB PER TUBE SCH ×2 (08:54→12:18)
[2021-08-07] MEDS: Multivits W-Minerals Liquid 15 ML LIQ PER TUBE SCH (08:54)
[2021-08-07] MEDS: Folic Acid 1 MG TAB PO SCH (08:55)
[2021-08-07] MEDS: Lisinopril 20 MG TAB PO SCH (08:55)
[2021-08-07] MEDS: Amlodipine 10 MG TAB PER TUBE SCH (08:55)
[2021-08-07] MEDS: Famotidine 20 MG TAB PO SCH (08:55)
[2021-08-07] MEDS: Scopolamine 1.5 mg/72 hour Patch TD SCH (08:56)
[2021-08-07] MEDS ORDERED: Apixaban 5 MG TAB PER TUBE SCH (09:00)
[2021-08-07] MEDS ORDERED: Amlodipine 5 MG TAB PO SCH (09:00)
[2021-08-07] MEDS ORDERED: Potassium Bicarbonate/Cit Ac 20 MEQ TAB PO SCH (09:30)
[2021-08-07] MEDS ORDERED: Potassium Chloride 20 MEQ TAB PO SCH (09:30)
[2021-08-07 17:10] VITALS: TEMP 98.2
[2021-08-07 19:41] VITALS: BP 142/71
== END 2021-08-07 19:40 | DRG 207 ==
LOC: CSHERS 12:07 → CSHICU 16:42 → CSHTELE 07-22 18:59
PROVIDERS: ADMIT Internal Medicine; ATTEND Hospitalist
PROC: 06HY33Z Insertion of Infusion Device into Lower Vein, Percutaneous Approach (ICD-10-PCS; principal; 2021-06-29)
PROC: 5A1955Z Respiratory Ventilation, Greater than 96 Consecutive Hours (ICD-10-PCS; 2021-06-29)
PROC: 0BH18EZ Insertion of Endotracheal Airway into Trachea, Via Natural or Artificial Opening Endoscopic (ICD-10-PCS; 2021-06-29)
PROC: 3E033XZ Introduction of Vasopressor into Peripheral Vein, Percutaneous Approach (ICD-10-PCS; 2021-06-29)
PROC: 03HY32Z Insertion of Monitoring Device into Upper Artery, Percutaneous Approach (ICD-10-PCS; 2021-06-30)
PROC: 4A133B1 Monitoring of Arterial Pressure, Peripheral, Percutaneous Approach (ICD-10-PCS; 2021-06-30)
PROC: 4A133J1 Monitoring of Arterial Pulse, Peripheral, Percutaneous Approach (ICD-10-PCS; 2021-06-30)
PROC: B5181ZA Fluoroscopy of Superior Vena Cava using Low Osmolar Contrast, Guidance (ICD-10-PCS; 2021-07-02)
PROC: B548ZZA Ultrasonography of Superior Vena Cava, Guidance (ICD-10-PCS; 2021-07-02)
PROC: 30233N1 Transfusion of Nonautologous Red Blood Cells into Peripheral Vein, Percutaneous Approach (ICD-10-PCS; 2021-07-02)
PROC: 5A09557 Assistance with Respiratory Ventilation, Greater than 96 Consecutive Hours, Continuous Positive Airway Pressure (ICD-10-PCS; 2021-07-08)
PROC: 02HV33Z Insertion of Infusion Device into Superior Vena Cava, Percutaneous Approach (ICD-10-PCS; 2021-07-29)
PROC: 0DH63UZ Insertion of Feeding Device into Stomach, Percutaneous Approach (ICD-10-PCS; 2021-07-29)
DX: I26.92 Saddle embolus of pulmonary artery without acute cor pulmonale (principal); J96.01 Acute respiratory failure with hypoxia; R57.8 Other shock; G93.41 Metabolic encephalopathy; J69.0 Pneumonitis due to inhalation of food and vomit; E87.4 Mixed disorder of acid-base balance; G93.1 Anoxic brain damage, not elsewhere classified; E87.0 Hyperosmolality and hypernatremia; E46 Unspecified protein-calorie malnutrition; E87.6 Hypokalemia; I10 Essential (primary) hypertension; D64.9 Anemia, unspecified; R68.0 Hypothermia, not associated with low environmental temperature; R13.12 Dysphagia, oropharyngeal phase; R73.9 Hyperglycemia, unspecified; R19.7 Diarrhea, unspecified; Z20.822 Contact with and (suspected) exposure to COVID-19; Z79.899 Other long term (current) drug therapy; Z68.32 Body mass index [BMI] 32.0-32.9, adult
CPT/HCPCS: 36415; 36416; 36430; 36556; 36569; 36600; 51702; 70450; 70553; 71045; 71250; 71275; 74177; 80048; 80053; 80202; 80306; 80307; 81001; 81003; 81015; 82140; 82274; 82550; 82553; 82805; 83605; 83690; 83735; 83880; 84100; 84132; 84145; 84146; 84443; 84484; 85007; 85025; 85027; 85379; 85384; 85610; 85730; 86850; 86900; 86901; 87040; 87086; 87324; 87449; 87899; 93005; 93010; 93306; 93970; 94002; 94003; 94640; 94660; 94667; 94668; 94760; 96372; 96374; 96375; A4217; C1751; J0360; J0610; J0692; J0696; J1630; J1644; J1650; J1720; J1815; J1940; J1953; J2060; J2250; J2270; J2543; J2704; J3010; J3370; J3475; J3480; J3490; J7050; J7070; P9016; P9047; S0028

== ENCOUNTER 2022-11-23 14:04 | Outpatient (CLI) | payer OTHER | END 2022-11-23 14:05 | disposition home or self-care (01) | LOC: CSHRAD 14:04 | PROVIDERS: ATTEND Family Medicine | DX: M25.512 Pain in left shoulder (principal) ==

== ENCOUNTER 2023-06-01 10:38 | Outpatient (CLI) | payer OTHER | END 2023-06-01 10:39 | disposition home or self-care (01) | LOC: CSHMAMMO 10:38 | PROVIDERS: ATTEND Family Medicine | DX: Z13.820 Encounter for screening for osteoporosis (principal); Z78.0 Asymptomatic menopausal state; M81.0 Age-related osteoporosis without current pathological fracture | CPT/HCPCS: 77080 ==

== ENCOUNTER 2023-11-19 12:11 | Emergency (ER) | payer OTHER ==
[2023-11-19 13:06] LABS: #Basophils 0.04 10x3/uL (0.0-0.2); #Eosinphils 0.04 10x3/uL (0.0-0.5); #Monocytes 0.41 10x3/uL (0.0-1.1); %Basophils 0.6 % (0.0-2.0); %Eosinophils 0.6 % (0.0-6.0); %Lymphocytes 31.5 % (18.0-47.0); %Monocytes 5.7 % (0.0-10.0); Hematocrit 37.1 % (34.9-44.5); Hemoglobin 12.5 g/dL (12.0-15.5); Mean Corpuscular HGB CONC 33.7 g/dL (32.0-36.0); Mean Corpuscular Hemoglobin 32.5 pg (27.0-33.0); Mean Corpuscular Volume 96.4 fL (81.6-98.3); Mean Platelet Volume 9.2 fL (7.4-10.4); Platelet Count 279 10x3/uL (150-450); RBC Distribution Width 15.2 % (11.5-14.5); Red Blood Cell (RBC) Count 3.85 10x6/uL (3.90-5.03); White Blood Cell (WBC) Count 7.2 10x3/uL (3.5-10.5)
[2023-11-19 13:17] LABS: INR-International Normal Ratio 1.1; PTT 21.9 sec (22.0-33.0); Prothrombin Time 11.7 sec (9.5-12.1)
[2023-11-19 13:20] LABS: ALT (SGPT) Less than 7 U/L (8-55); AST (SGOT) 24 U/L (5-34); Albumin 3.9 g/dL (3.4-4.8); Alkaline Phosphatase 31 U/L (40-110); Anion Gap 13 mmol/L (10-20); BUN (Urea Nitrogen) 27 mg/dL (9.8-20.1); Bilirubin, Total 0.5 mg/dL (0.2-1.2); Calc. Creatinine Clearance 0 mL/min (70-130); Calcium 9.6 mg/dL (7.8-10.44); Carbon Dioxide 22 mmol/L (23-31); Chloride 110 mmol/L (98-107); Estimated GFR 48; Globulin 3.2 g/dL (2.4-3.5); Glucose 100 mg/dL (83-110); Potassium 3.9 mmol/L (3.5-5.1); Protein, Total 7.1 g/dL (5.8-8.1); Sodium 141 mmol/L (136-145)
[2023-11-19 14:12] LABS: Bilirubin Neg (Negative); Blood, Urine 10 (Negative); Clarity Slightly Cloudy (Clear); Glucose, Urine (Dipstick) Normal (Negative); Ketone, Urine Negative (Negative); Leukocyte 100 (Negative); Nitrite Negative (Negative); Protein, Urine (Dipstick) 100 mg/dl (Neg-Trace); Specific Gravity, Urine 1.025 (1.005-1.030); Urobilinogen Normal mg/dL (Less than 2)
[2023-11-19 14:34] LABS: CAUTI Indications for Culture Dysuria,urgency,freq; RBC/HPF 0-3 HPF (0-3)
[2023-11-19 14:35] LABS: Squamous Epithelial 0-3 HPF (0-3); Transitional Epithelial 0-3 HPF (None Seen)
[2023-11-19 14:37] LABS: Calcium Oxalate Crystals 1+ HPF (None Seen)
[2023-11-19 14:38] LABS: Mucous/LPF 3+ LPF (<2+); White Blood Cell Cast 0-3 LPF (None Seen)
[2023-11-19 14:39] LABS: Bacteria/HPF 2+ HPF (None Seen)
[2023-11-19 14:41] LABS: Urine Culture Reflex Yes Yes
== END 2023-11-19 15:28 | disposition home or self-care (01) ==
LOC: CSHERS 12:11
DX: N39.0 Urinary tract infection, site not specified (principal); R55 Syncope and collapse; I10 Essential (primary) hypertension
CPT/HCPCS: 36415; 70450; 71045; 80053; 81001; 85025; 85610; 85730; 87086; 93005; G0390